=== PATIENT | male | born 1930 | race African-American/Black ===

== ENCOUNTER 2016-09-26 16:36 | Inpatient (IN) | payer OTHER ==
--- NOTE | 2016-09-26 17:13 | EKG Report ---
Test Performed on : 09/26/2016 4:40:22 PM Test Reason : chest pain Blood Pressure : / mmHG Vent. Rate : 088 BPM Atrial Rate : 088 BPM P-R Int : 152 ms QRS Dur : 088 ms QT Int : 390 ms P-R-T Axes : 046 002 118 degrees QTc Int : 471 ms Sinus rhythm. with frequent premature ventricular complexes. Septal infarct , age undetermined T wave abnormality, consider lateral ischemia Abnormal ECG When compared with ECG of 04-APR-2016 04:20, QRS duration has decreased Septal infarct is now present T wave inversion now evident in Lateral leads Unconfirmed Result
[2016-09-26 17:29] LABS: MANUAL DIFF NEEDED? NO
[2016-09-26 17:31] LABS: BASO% 0.3 % (0.0-0.8); EOS# 0.29 X1000 (0.0-0.7); EOS% 4.1 % (0.0-10.0); HEMOGLOBIN 11.6 g/dL (14.0-18.0); IMM GRAN# 0.01 X1000 (0.0-0.04); IMM GRAN% 0.1 % (0.0-0.5); LYMPH# 2.56 X1000 (1.2-3.4); LYMPH% 36.6 % (20.5-51.1); MCH 29.4 PG (27-31); MCHC 34.1 g/dL (33-37); MCV 86.1 FL (81-99); MONO# 0.65 X1000 (0.11-0.59); MONO% 9.3 % (1.7-9.3); MPV 11.9 FL (7.4-10.4); NEUT% 49.6 % (42.2-75.2); PLT 172 X1000 (130-400); RBC 3.95 XMIL (4.7-6.1)
--- NOTE | 2016-09-26 17:37 | PROVIDER DOCUMENTATION ---
HPI-Chest Pain - General Source: patient - History of Present Illness-CP Location: reports: central Chest Pain Radiation: reports: no radiation Quality of Pain: reports: dull, sharp Severity in ED: moderate Onset/Duration: abrupt, 24 hours ago Timing: still present, constant Context/Activities at Onset: reports: none Modifying Factors: worse with: exercise, lying down Associated Symptoms: reports: edema, shortness of breath. denies: back pain, diaphoresis, nausea, vomiting Nitro Today/Relief: no nitro taken today Aspirin Treatment Today: 325 mg x 1, provided by ED Prior Chest Pain/Cardiac Workup: reports: other (previous Bypass Apr 2016) Similar Symptoms Previously?: Yes Recently Seen Here or By Another Healthcare Provider: Yes <Moreno Varma - Last Filed: 09/26/16 17:47> <Wilber Shell - Last Filed: 09/26/16 17:56> <Lucian Macdonald - Last Filed: 09/26/16 18:39> <Pasha Darling - Last Filed: 09/26/16 18:47> - General Chief Complaint: Shortness of Breath Stated Complaint: CHEST PAIN Time Seen by Provider: 09/26/16 17:36 Allergies/Adverse Reactions: Patient Allergies Allergy/AdvReac Type Severity Reaction Status Date / Time Latex, Natural Rubber Allergy Severe RASH Verified 09/26/16 16:41 codeine Allergy Mild ITCHING Verified 09/26/16 16:41 Penicillins Allergy Mild ITCHING Verified 09/26/16 16:41 Home Medications: Home Medication List Medication Instructions Recorded Confirmed Last Taken Type Aspirin [Aspirin EC] 81 mg PO DAILY 03/29/16 09/26/16 04/04/16 History Gabapentin 300 mg PO BID 03/29/16 09/26/16 Unknown History Insulin Regular, Human [Humulin R] 1,000 unit SQ BID 03/29/16 09/26/16 Unknown History Linaclotide [Linzess] 145 mcg PO DAILY 03/29/16 09/26/16 Unknown History NPH, Human Insulin Isophane 100 unit SQ BID 03/29/16 09/26/16 Unknown History [Humulin N] Nitroglycerin Sl [Nitroglycerin] 0.4 mg SL PRN PRN 03/29/16 09/26/16 Unknown History Ranolazine [Ranexa] 1,000 mg PO DAILY 03/29/16 09/26/16 Unknown History Insulin Human NPH [Humulin N] See Protocol SUBQ AC + HS #100 vial 03/30/1609/26 Unknown Rx ATORVAstatin [Lipitor] 10 mg PO QHS 04/04/16 09/26/16 Unknown History Hydrocodone Bit/Acetaminophen 1 tab PO BID 04/04/16 09/26/16 Unknown History [Hydrocodon-Acetaminophen 5-325] Isosorbide Mononitrate [Isosorbide 60 mg PO DAILY 04/04/16 09/26/16 Unknown History Mononitrate ER] Metoprolol [Lopressor] 100 mg PO DAILY 04/04/16 09/26/16 Unknown History Pregabalin [Lyrica] 50 mg PO DAILY PRN PRN 04/04/16 09/26/16 Unknown History - History of Present Illness-CP Nature of Presenting Problem: patient is a 86 y/o M that presents with central chest pain. Pain is dull and sharp in nature. Began yesterday. He has associated shortness of breath and edema. patient went Er and was evaluated all day there. He continued to have pain. Patient had CABG in 2015 by , he reports having pain periodically since then. (Moreno Varma) Review of Systems - Adult - REVIEW OF SYSTEMS - ADULT Constitutional: denies: chills, fever Eyes: reports: no symptoms reported Ears, Nose, Mouth & Throat: reports: no symptoms reported Cardiovascular: reports: chest pain, edema. denies: orthopnea, palpitations, syncope Respiratory: reports: shortness of breath. denies: cough, wheezing Gastrointestinal: denies: abdominal pain, diarrhea, nausea, vomiting Genitourinary: reports: no symptoms reported Musculoskeletal: reports: no symptoms reported Integumentary: reports: no symptoms reported Neurological: reports: no symptoms reported Psychiatric: reports: no symptoms reported Endocrine: reports: no symptoms reported Hematologic/Lymphatic: reports: no symptoms reported Allergic/Immunologic: reports: no symptoms reported All Other Systems: Reviewed and Negative <Moreno Varma - Last Filed: 09/26/16 17:47> Past History - Adult - PAST MEDICAL HISTORY-ADULT Review of Records: reports: Old Records Reviewed, Nursing Assessment Review, Medications Reviewed Cardiovascular: reports: CAD, HTN, hyperlipidemia Respiratory: reports: asthma, other (asbestosis) Gastrointestinal: reports: GERD Obstetrical/Gynecological: reports: denies history Genitourinary: reports: prostate cancer Musculoskeletal: reports: chronic pain Neurological: reports: denies history Psychiatric: reports: anxiety Endocrine/Immune: reports: Diabetes Other Conditions: reports: denies history - PRIOR SURGERIES/PROCEDURES Surgical/Procedure History: reports: tonsillectomy, hernia repair - IMMUNIZATION STATUS Childhood Immunizations: See Nurse Assessment Flu Vaccine: See Nurse Assessment - FAMILY HISTORY Family History: reviewed, not pertinent <Moreno Varma - Last Filed: 09/26/16 17:47> Physical Exam-General - PHYSICAL EXAM-ADULT Initial Vital Signs Reviewed: Yes - CONSTITUTIONAL General Appearance: alert, no apparent distress - EYES Eyes: PERRL/EOMI, pink conjunctivae - HEAD, EARS, NOSE, MOUTH & THROAT HENMT: normocephalic/atraumatic, moist mucous membranes, normal ENT inspection - NECK Neck: non-tender, full range of motion, normal inspection - RESPIRATORY Respiratory: lungs clear, normal breath sounds, no respiratory distress, no accessory muscle use, other (well healed midline surgical scar) - CARDIOVASCULAR Cardiovascular: regular rate, rhythm, no edema, no murmur - GASTROINTESTINAL (ABDOMEN) Abdominal Exam: normal bowel sounds, non tender, soft - MUSCULOSKELETAL Back Exam: no CVA tenderness, no vertebral tenderness Extremity: normal range of motion, non-tender, normal inspection, no pedal edema , no calf tenderness, normal capillary refill - SKIN Integumentary: normal color, warm/dry - NEUROLOGIC Neurologic: grossly normal, no motor/sensory deficits - PSYCHIATRIC Psych/Mental Status: normal mood/affect, normal thought content, normal thought process, oriented x 3 <Moreno Varma - Last Filed: 09/26/16 17:47> Progress - EKG 1 Time of EKG reading by physician:: 16:40 EKG Read and Signed by:: Wilber Shell EKG Interpretation (*Must complete 3 of following elements*): Abnormal Rate: 88 Rhythm: Sinus Rhythm with PVCs [place]: normal QRS: normal ST Wave: non-specific ST changes <Moreno Varma - Last Filed: 09/26/16 17:47> - CHANGE OF SHIFT REPORT (ED Provider) Report Given and Care Transferred to:: Time of Transfer: 18:00 Items Pending: Labs, XRAY Results <Wilber Shell - Last Filed: 09/26/16 17:56> <Lucian Macdonald - Last Filed: 09/26/16 18:39> - XRAY 1 XRAY: Bilateral XRAY Study: Chest XRAY Interpretation: negative - CONSULTS/PCP/HOSPITALIST Notification #1 *Consult/PCP/Hospitalist*: DR MILLER Time Discussed: 18:40 Reason/Comments: DR MCADONALD SPOKE WITH DR MILLER. DR MILLER WILL ADMIT. Consult Disposition: Admit <Pasha Darling - Last Filed: 09/26/16 18:47> - PLAN OF CARE/RESULTS Progress/Plan/Lab Results: plan of care-cardiac work up (Moreno Varma) Laboratory Tests 09/26/16 09/26/16 09/26/16 17:20 17:20 17:20 WBC RBC Hgb Hct MCV MCH MCHC RDW Std Deviation Plt Count MPV Immature Gran % (Auto) Neut % (Auto) Lymph % (Auto) [place] % (Auto) Eos % (Auto) Baso % (Auto) Immature Gran # (Auto) Neut # (Auto) Lymph # (Auto) [place] # (Auto) Eos # (Auto) Baso # (Auto) PT INR APTT (Factor Assay) D-Dimer Sodium 133 L Potassium 4.2 Chloride 97 L Carbon Dioxide 23 L Anion Gap 14 BUN 20 Creatinine 1.2 Estimated GFR/1.73 m2 58 BUN/Creatinine Ratio 17 Glucose 384 H Calculated Osmolality 285 Calcium 9.4 Magnesium 1.9 Total Bilirubin 0.20 AST 24 ALT 16 Alkaline Phosphatase 57 Creatine Kinase 97 Troponin T 0.014 Uya-K-Nuccqwzrmmf Pept 732 H Total Protein 7.3 Albumin 4.0 Globulin 3.0 Albumin/Globulin Ratio 1.0 09/26/16 09/26/16 17:20 17:20 WBC 6.99 RBC 3.95 L Hgb 11.6 L Hct 34.0 L MCV 86.1 MCH 29.4 MCHC 34.1 RDW Std Deviation 15.4 H Plt Count 172 MPV 11.9 H Immature Gran % (Auto) 0.1 Neut % (Auto) 49.6 Lymph % (Auto) 36.6 [place] % (Auto) 9.3 Eos % (Auto) 4.1 Baso % (Auto) 0.3 Immature Gran # (Auto) 0.01 Neut # (Auto) 3.46 Lymph # (Auto) 2.56 [place] # (Auto) 0.65 H Eos # (Auto) 0.29 Baso # (Auto) 0.02 PT 13.5 INR 1.00 APTT (Factor Assay) 30.3 D-Dimer 0.81 H Sodium Potassium Chloride Carbon Dioxide Anion Gap BUN Creatinine Estimated GFR/1.73 m2 BUN/Creatinine Ratio Glucose Calculated Osmolality Calcium Magnesium Total Bilirubin AST ALT Alkaline Phosphatase Creatine Kinase Troponin T Oti-D-Zuazmycdslb Pept Total Protein Albumin Globulin Albumin/Globulin Ratio Orders Category Date Time Status Admit - [facility] Routine AdmDCTranf 09/26/16 18:41 Ordered Activity - Bed Rest with BRP ORDERED Care 09/26/16 18:41 Active Cardiac Monitoring DIRECTED Care 09/26/16 17:19 Active Oxygen Therapy- ED Nursing DIRECTED Care 09/26/16 17:19 Active Saline Loc NOW Care 09/26/16 17:19 Active Vital Signs Order Q 4-HR ASSESS Care 09/26/16 18:41 Active Diabetic Diet Diet 09/26/16 18:42 Active CHEST-2 VIEWS [RAD] Stat Exams 09/26/16 17:19 Taken CTA [ANGIOGRAM/PULMONARY ARTERIES] [CT] Stat Exams 09/26/16 18:06 Taken CBC WITH ELECTRONIC DIFF [HEME] Stat Lab 09/26/16 17:20 Completed CK PROFILE [SP CHEM] Stat Lab 09/26/16 17:20 Completed COMPREHENSIVE METABOLIC PANEL [CHEM] Stat Lab 09/26/16 17:20 Completed Cardiac Profile [CK PROFILE] [SP CHEM] Timed Lab 09/26/16 21:00 Ordered D-DIMER PL [COAG] Stat Lab 09/26/16 17:20 Completed MAGNESIUM [CHEM] Stat Lab 09/26/16 17:20 Completed PRO B-NATRIURETIC PEPTIDE Stat Lab 09/26/16 17:[address] Com[address]IME WITH INR [address] [COAG] Stat Lab 09/26/16 17:[address] [COAG] Stat Lab 09/26/16 17:20 Completed TROPONIN T Q4H Lab 09/26/16 21:00 Ordered TROPONIN T Q4H Lab 09/27/16 01:00 Ordered TROPONIN T Q4H Lab 09/27/16 05:00 Ordered TROPONIN T Stat Lab 09/26/16 17:20 Completed Enoxaparin [Lovenox] Med 09/26/16 18:40 Discontinued 80 mg SUBQ NOW ONE Oxygen Device Routine Oth 09/26/16 18:42 Active Telemetry [OM.EQ] Routine Oth 09/26/16 18:41 Active EKG [EKG] Stat Ther 09/26/16 17:10 Draft EKG [EKG] Stat Ther 09/26/16 17:19 Ordered Transfer/Admit Order [TRANSFER] Routine Transfer 09/26/16 18:44 Ordered Vital Signs - 24 hr 09/26/16 16:38 Pulse Rate 91 H Respiratory 24 Rate Blood Pressure 116/071 O2 Sat by Pulse 98 Oximetry (Pasha Darling) Departure <Moreno Varma - Last Filed: 09/26/16 17:47> <Wilber Shell - Last Filed: 09/26/16 17:56> - Departure Time of Disposition Order: 18:40 Certified Medical Emergency: Emergent <Lucian Macdonald - Last Filed: 09/26/16 18:39> <Pasha Darling - Last Filed: 09/26/16 18:47> - Departure DIAGNOSIS: Shortness of breath, Elevated d-dimer Chest pain Qualifiers: Chest pain type: unspecified Qualified Code(s): R07.9 - Chest pain, unspecified CAD (coronary artery disease) Qualifiers: Coronary Disease-Associated Artery/Lesion type: unspecified vessel or lesion type [place] vs. transplanted heart: unspecified whether [place] or transplanted heart Associated angina: with unspecified angina Qualified Code(s): I25.119 - Atherosclerotic heart disease of [place] coronary artery with unspecified angina pectoris Disposition: ADMITTED INPATIENT 09 Condition: Stable Referrals: Chinmay Cunha MD [Primary Care Provider] - Attestation - Scribe Verification/Attestation Scribe:: Moreno Varma Acting as Scribe for:: Wilber Shell Scribe documention review:: This chart was documented by a scribe and accurately reflects the service the provider performed and the decisions made by the provider. <Moreno Varma - Last Filed: 09/26/16 17:47> - Scribe Verification/Attestation Scribe:: Pasha Darling Acting as Scribe for:: Lucian Macdonald Scribe documention review:: This chart was documented by a scribe and accurately reflects the service the provider performed and the decisions made by the provider. <Pasha Darling - Last Filed: 09/26/16 18:47> Physician Attestation - Physician Attestation I, the provider, attest to the following statement:: Wilber Shell Physician documentation Attestation:: This documentation recorded by the scribe accurately reflects the service I personally performed and the decisions made by me. <Moreno Varma - Last Filed: 09/26/16 17:47>
[2016-09-26 17:40] LABS: PROTIME 13.5 Seconds (12.1-15.5)
[2016-09-26 17:41] LABS: PTT PL 30.3 Seconds (22.6-43.9)
[2016-09-26 17:56] LABS: CALCIUM 9.4 mg/dL (8.8-10.2); MAGNESIUM 1.9 mg/dL (1.5-2.7); POTASSIUM 4.2 mmol/L (3.5-5.1); TOTAL BILIRUBIN 0.2 mg/dL (0.20-1.00); TOTAL PROTEIN 7.3 g/dL (6.3-8.3)
[2016-09-26] MEDS ORDERED: LOVENOX SUBQ ONE (18:40)
[2016-09-26] MEDS ORDERED: HUMULIN R (PARKWAY) SUBQ ONE (19:32)
[2016-09-26] MEDS ORDERED: HUMULIN R DOSE (PARKWAY) ONE (19:43)
[2016-09-26] MEDS ORDERED: LYRICA PO PRN (21:05)
[2016-09-26] MEDS ORDERED: NITROGLYCERIN SL PRN (21:05)
[2016-09-27 05:58] LABS: HEMATOCRIT 33.5 % (42.0-52.0); HEMOGLOBIN 11.4 g/dL (14.0-18.0); MCV 85.2 FL (81-99); MPV 11.9 FL (7.4-10.4); RBC 3.93 XMIL (4.7-6.1)
[2016-09-27] MEDS: LINZESS PO SCH (07:06)
[2016-09-27] MEDS: HUMULIN R (PARKWAY) SUBQ SCH ×2 (09:18→17:18)
[2016-09-27] MEDS: NORCO-5 PO SCH ×2 (09:19→20:53)
[2016-09-27] MEDS: IMDUR PO SCH (09:19)
[2016-09-27] MEDS: ASPIRIN EC PO SCH (09:19)
[2016-09-27] MEDS: RANEXA PO SCH (09:19)
[2016-09-27] MEDS: LOPRESSOR PO SCH (09:19)
[2016-09-27] MEDS: HUMULIN N INSULIN (PARKWAY) SUBQ SCH ×2 (09:19→17:18)
[2016-09-27] MEDS: NEURONTIN PO SCH ×2 (09:19→20:52)
[2016-09-27 09:21] LABS: AGAP 15; ALBUMIN 3.8 g/dL (3.5-5.0); ALKALINE PHOSPHATASE 51 U/L (32-122); BUN 20 mg/dL (8-22); CALCIUM 9.1 mg/dL (8.8-10.2); CHLORIDE 101 mmol/L (98-107); COSMO 282; GOT 28 U/L (10-34); GPT 18 U/L (10-44); HDL 64 mg/dL (35-55); LDL 124 mg/dL; POTASSIUM 4.3 mmol/L (3.5-5.1); SODIUM 138 mmol/L (136-145); TCO2 22 mmol/L (25-35); TOTAL BILIRUBIN 0.32 mg/dL (0.20-1.00); TOTAL PROTEIN 7.1 g/dL (6.3-8.3); TRIGLYCERIDES 76 mg/dL (39-160); VLDL 15 mg/dL
--- NOTE | 2016-09-27 09:29 | Diag Imaging Result Document ---
PROCEDURE NAME: CHEST-2 VIEWS - 09/26/2016 TWO VIEWS OF THE CHEST: FINDINGS: There has been sternotomy and multiple old rib fractures on the left. The lungs are actually better expanded than on 04/04/2016. There has been no appreciable change otherwise. IMPRESSION: No acute abnormality.
[2016-09-27] MEDS: LASIX PO SCH (09:36)
[2016-09-27] MEDS: WELLBUTRIN XL PO SCH (09:36)
[2016-09-27] MEDS: FLOMAX PO SCH (09:36)
[2016-09-27] MEDS: CYMBALTA PO SCH (09:36)
[2016-09-27] MEDS: COZAAR PO SCH (09:36)
[2016-09-27] MEDS: REMERON PO SCH (09:36)
[2016-09-27] MEDS: DEPAKOTE PO SCH ×2 (09:36→20:52)
--- NOTE | 2016-09-27 09:57 | Diag Imaging Result Document ---
PROCEDURE NAME: ANGIOGRAM/PULMONARY ARTERIES - 09/26/2016 CT OF THE CHEST WITH INTRAVENOUS CONTRAST: FINDINGS: There is some patient motion which obscures detail in the distal branches of the pulmonary arteries but no definite filling defects are identified. The aorta is not distended and there is no evidence of dissection. The left ventricle is slightly enlarged. There is a left pleural effusion. 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 No significant adenopathy is present. There has been previous sternotomy. There is no evidence of acute pulmonary parenchymal disease. There is a small hiatal hernia. IMPRESSION: Left pleural effusion. No evidence of pulmonary emboli. 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
[2016-09-27] MEDS: EXELON PO SCH (10:19)
[2016-09-27] MEDS: TEMOVATE 0.05% CREAM TOP SCH ×2 (10:19→20:53)
--- NOTE | 2016-09-27 10:50 | PROGRESS NOTE ---
DATE: 09/27/2016 SUBJECTIVE: The patient denies any chest pain currently this morning. He states that he was able to sleep last night. Denies any current shortness of breath. However, notes that he is having pain on his right leg. Interestingly, the patient notes that this is the reason he came to the hospital was his right leg pain, although last night he denied anything other than shortness of breath. Today, he notes that the right leg pain has been going on for several months. Patient unfortunately is a poor historian at best, and family does not appear to be able to assist in his history. OBJECTIVE: Vital Signs: On physical, temperature 97.0 degrees, pulse 80, respiratory 18, BP 128/91 to 164/74, satting 100% on room air. General: Patient is well developed, well nourished. He is currently in no respiratory distress. He is awake, alert. Neck: Supple. Sitting up eating breakfast. Chest: Relatively clear. Occasional rhonchi. No crackles, no wheezing. CV: Regular rate. Abdomen: Soft. Extremities: He is noted to move all extremities. Neurologic: No changes. LABORATORY DATA: CBC normal. CMP pending. Cardiac enzymes were negative. DIAGNOSTIC DATA: Ultrasound of lower extremities pending. CTA final dictated copy also is still pending. ASSESSMENT: 1. Elevated D-dimer likely secondary to his previous heart surgery. 2. Mild anemia of chronic disease, stable. 3. Hyponatremia. 4. Diabetes with hyperglycemia. 5. Right leg pain. PLAN: We will check an x-ray of his lower extremity. We will check ultrasound. We will continue his home medications, hopefully home in 1-2 days.
--- NOTE | 2016-09-27 12:20 | HISTORY AND PHYSICAL ---
CHIEF COMPLAINT: Chest pain. HISTORY OF PRESENT ILLNESS: This patient is an 86-year-old male, who recently had some heart procedure done in June. The patient is a very poor historian as his daughter. The patient notes that he has been having chest pain ever since, but then notes the chest pain is not the reason that he came to the hospital, instead it was shortness of breath. He denies any current shortness of breath. Notes that he was just in the ER at [facility] yesterday for the chest pain and shortness of breath and was given medication, however they did not fill this at home. ALLERGIES: Latex, codeine, penicillin causing itching and rash. MEDICATIONS: Aspirin, gabapentin 300 b.i.d., Humulin-R, Linzess 140, Humulin-N 100 b.i.d., Ranexa 1000 once a day, Lipitor 10 at bedtime, [place] p.r.n., Imdur ER 60, Lopressor 100, Lyrica 50. PAST MEDICAL HISTORY: Known coronary artery disease. The patient had a CABG in [place] [address] Acharya. He has been having chest pain off and on ever since. Known coronary artery disease, hypertension, hyperlipidemia, history of asbestosis, reflux, history of prostate cancer, chronic pain, diabetes, history of tonsillectomy and a hernia repair. FAMILY HISTORY: Positive for heart disease and diabetes. SOCIAL HISTORY: Patient lives at home. He is helped, cared for by his family. He does not smoke or drink. PHYSICAL EXAMINATION: VITAL SIGNS REVIEWED: Temperature 98.0 degrees, pulse 91, respiratory 20, BP 116/71, satting 98% on room air. GENERAL: Patient is a well developed, elderly male, who is currently in no respiratory distress. He is awake, alert. NECK: Supple. CV: Regular rate. CHEST: Relatively clear. No wheezing. No crackles appreciable. ABDOMEN: Soft. EXTREMITIES: Moves all extremities. NEUROLOGIC: No changes. LABS: CBC essentially normal. D-dimer elevated at 0.81 as to be expected with his recent heart surgery. Glucose 384. Sodium 133. First set of cardiac enzymes negative. BNP 732. ASSESSMENT: 1. Chest pain. 2. Shortness of breath. 3. Known coronary artery disease. 4. Chronic pain. 5. Diabetes. 6. Hyponatremia. 7. Elevated D-dimer with a negative computed tomography angiography. PLAN: We will admit patient to the hospital overnight. Check ultrasound of his lower extremity. CTA was reported as negative, although I do not have the final dictated copy. We will continue his home medications. We will order ultrasound of his lower extremities, although expect his D- dimer is elevated secondary to his recent heart surgery.
--- NOTE | 2016-09-27 13:24 | Diag Imaging Result Document ---
PROCEDURE NAME: LOWER LEG-RIGHT - 09/27/2016 RIGHT LOWER LEG 4 VIEWS: FINDINGS: There are some arterial calcifications. There is no evidence of acute fracture or dislocation. No periosteal reaction or lysis is present. IMPRESSION: Atherosclerosis.
[2016-09-27] MEDS: TESSALON PO SCH ×2 (14:00→17:19)
[2016-09-27] MEDS ORDERED: NS 500 ML ONE (17:02)
[2016-09-27] MEDS ORDERED: NS 500 ML IV ONE (17:15)
[2016-09-27 17:28] LABS: URINE CULTURE PL NEEDED? NO
[2016-09-27 17:52] LABS: BILIRUBIN URINE NEGATIVE (NEGATIVE); BLOOD URINE NEGATIVE (NEGATIVE); CLARITY CLEAR (CLEAR); COLOR YELLOW; GLUCOSE URINE NEGATIVE (NEGATIVE); LEUKOCYTES URINE NEGATIVE (NEGATIVE); NITRITE URINE NEGATIVE (NEGATIVE); PROTEIN URINE 1+(30 mg/dL) mg/dL (NEGATIVE); UROBILINOGEN URINE NORMAL
[2016-09-27 18:06] LABS: HEMATOCRIT 31.4 % (42.0-52.0); HEMOGLOBIN 10.6 g/dL (14.0-18.0); MCH 29.2 PG (27-31); MCHC 33.8 g/dL (33-37); MCV 86.5 FL (81-99); MPV 11.9 FL (7.4-10.4); RBC 3.63 XMIL (4.7-6.1)
[2016-09-27 18:07] LABS: ALBUMIN 3.6 g/dL (3.5-5.0); CALCIUM 9.1 mg/dL (8.8-10.2); MAGNESIUM 2.1 mg/dL (1.5-2.7); POTASSIUM 4.4 mmol/L (3.5-5.1); TOTAL BILIRUBIN 0.3 mg/dL (0.20-1.00); TOTAL PROTEIN 6.7 g/dL (6.3-8.3)
[2016-09-27 18:12] LABS: URINE SOURCE CATH
[2016-09-27] MEDS: LIPITOR PO SCH (20:52)
[2016-09-28 05:59] LABS: HEMATOCRIT 30.7 % (42.0-52.0); HEMOGLOBIN 10.4 g/dL (14.0-18.0); MCH 29.1 PG (27-31); MCHC 33.9 g/dL (33-37); MCV 85.8 FL (81-99); MPV 12.1 FL (7.4-10.4); RBC 3.58 XMIL (4.7-6.1)
[2016-09-28] MEDS: LINZESS PO SCH (06:07)
[2016-09-28 06:14] LABS: ALBUMIN 3.5 g/dL (3.5-5.0); CALCIUM 8.7 mg/dL (8.8-10.2); POTASSIUM 3.9 mmol/L (3.5-5.1); TOTAL BILIRUBIN 0.3 mg/dL (0.20-1.00); TOTAL PROTEIN 6.5 g/dL (6.3-8.3)
[2016-09-28] MEDS: HUMULIN R (PARKWAY) SUBQ SCH ×2 (08:26→18:23)
[2016-09-28] MEDS: HUMULIN N INSULIN (PARKWAY) SUBQ SCH ×2 (08:26→18:23)
[2016-09-28] MEDS: ASPIRIN EC PO SCH (08:27)
[2016-09-28] MEDS: LASIX PO SCH (08:27)
[2016-09-28] MEDS: COZAAR PO SCH (08:31)
[2016-09-28] MEDS: LOPRESSOR PO SCH (08:31)
[2016-09-28] MEDS: IMDUR PO SCH (08:33)
[2016-09-28] MEDS: TEMOVATE 0.05% CREAM TOP SCH ×2 (08:33→20:13)
[2016-09-28] MEDS: FLOMAX PO SCH (08:33)
[2016-09-28] MEDS: RANEXA PO SCH (08:33)
[2016-09-28] MEDS: NORCO-5 PO SCH (08:33)
[2016-09-28] MEDS: REMERON PO SCH (08:33)
[2016-09-28] MEDS: NEURONTIN PO SCH ×2 (08:33→20:13)
[2016-09-28] MEDS: WELLBUTRIN XL PO SCH (08:34)
[2016-09-28] MEDS: CYMBALTA PO SCH (08:34)
[2016-09-28] MEDS: DEPAKOTE PO SCH ×2 (08:34→20:12)
[2016-09-28] MEDS: EXELON PO SCH (08:34)
[2016-09-28] MEDS: TESSALON PO SCH ×3 (08:34→16:27)
[2016-09-28] MEDS ORDERED: LOPRESSOR PO SCH (08:52)
--- NOTE | 2016-09-28 09:24 | EKG Report ---
Test Performed on : 09/27/2016 4:58:03 PM Test Reason : CHEST PAIN Blood Pressure : / mmHG Vent. Rate : 074 BPM Atrial Rate : 074 BPM P-R Int : 164 ms QRS Dur : 090 ms QT Int : 438 ms P-R-T Axes : 051 025 162 degrees QTc Int : 486 ms Sinus rhythm. with frequent premature ventricular complexes. T wave abnormality, consider lateral ischemia Prolonged QT Abnormal ECG When compared with ECG of 26-SEP-2016 16:40, (Unconfirmed) Nonspecific T wave abnormality now evident in Inferior leads Unconfirmed Result
--- NOTE | 2016-09-28 12:29 | PROGRESS NOTE ---
DATE: 09/28/2016 SUBJECTIVE: Patient had an eventful episode yesterday whereas yesterday morning he was awake and alert. He was in no distress. He was feeling fine. Yesterday around 2 p.m., he became lightheaded, dizzy, somewhat short of breath. His had to help him lay back on the bed. Afterwards, she noted that he was a lot more sleepy than his usual self. Since that time, he was given some IV fluids. This morning, he is awake, alert. He is in no distress. He states that he is feeling better. He is actually asking to go home. PHYSICAL EXAMINATION: Vital Signs: Temperature 98, pulse 68, respiratory rate 18, BP 99/75. General: Patient is awake, alert. He is in no distress. He is pleasant to talk with. Speech is regular. Memory appears intact. HEENT: Normocephalic, atraumatic. [place]. Neck: Supple. CV: Regular rate. Chest: Relatively clear. Abdomen: Soft. Extremities: Moves all extremities. Neurologic: No changes. DIAGNOSTIC DATA: CBC unchanged. CMP reviewed with a creatinine of 1.4 which is improved. ASSESSMENT: 1. Chest pain, resolved. 2. Syncopal episode, likely secondary to medications. Patient is improved. 3. Known coronary artery disease with a recent coronary artery bypass graft in April of 2016. 4. Chronic pain. 5. Diabetes with hyperglycemia. 6. Acute renal failure. Serum creatinine is improving. 7. Elevated D-dimer with a negative ultrasound of the lower extremities as well as negative CTA. PLAN: We will continue patient in the hospital today. We will continue to follow. We will decrease his metoprolol from 100-50 as this certainly could have contributed to his syncopal type episode when he tried to sit up. He also got a little overly dry from the IV Lasix that he received and was given a small fluid bolus last night. Patient appears to be better today. We will continue to follow. Further orders as needed. There were 44 minutes spent in total care.
--- NOTE | 2016-09-28 16:22 | CONSULTATION ---
DATE OF CONSULTATION: 09/28/2016 INDICATION: Shortness of breath. HISTORY OF PRESENT ILLNESS: Mr. De La Fuente is an 86-year-old, black male who normally follows with Dr. Tobar. He has a history of recent cardiac bypass in approximately April [address] Acharya. The patient reportedly had episodic shortness of breath that caused him to seek care around that time. He thinks that this improved for a few months or so after the bypass, but then over the last couple of months it has returned. This mostly is noted with exertion, but apparently has also had some episodic orthopnea as well. The patient is an extremely poor historian. He has a family member present in the room who provides some of the history, but again this is a very difficult history. He reportedly had an ER visit at [place] with an apparent dose of Lasix due to fluid overload, but we have no records to review from that ER visit. He apparently had this performed in roughly mid of last week and continued to have episodic shortness of breath and thus presented to [place] for further evaluation on the . PAST MEDICAL HISTORY: 1. Significant for coronary disease with bypass in April [address] Acharya. 2. Hypertension. 3. Hyperlipidemia. 4. Diabetes mellitus. SOCIAL HISTORY: He does not currently smoke. No alcohol use. FAMILY HISTORY: Significant for hypertension. REVIEW OF SYSTEMS: A 10 system review of systems is negative except for those things mentioned in HPI. PHYSICAL EXAMINATION: Vital signs: He is afebrile. His heart rate is 82. His blood pressures have been somewhat erratic. He had a 91/61. Since the since, most of his blood pressures have been in the 110s or so to 120s systolic. His heart rate is 82. General: He is in no acute distress. HEENT: Oropharynx is moist. Normal dentition. His eye examination shows pink conjunctivae, white sclerae. Neck: Examination shows no obvious thyromegaly or thyroid tenderness. Cardiovascularly: He is in a regular rate and rhythm. He has no obvious murmurs. He has no S3. He has no lower extremity edema. Chest: Exam sounds clear to auscultation bilaterally. He has no increased work of breathing. Abdomen: Soft, nontender , nondistended. He has no obvious organomegaly. Skin: Warm and dry throughout without any rashes. Neurological: He is moving all extremities well. Cranial nerves 2-12 are intact without any sensation deficits. Psychiatric: He is alert, oriented and pleasant. He has a normal mood and affect. PERTINENT DATA: He has EKGs performed here in the hospital. His initial was performed the at 1640. This shows sinus rhythm. He has some mild ST-segment changes in V4 through V6 with suggestion of a possible septal infarct. His subsequent EKG was performed on the at 1658, shows sinus rhythm, evidence for mild ST-segment changes somewhat diffusely. Evidence for septal infarct is present. T-wave inversions are noted laterally. These seem different from his last EKG that is interpretable on 03/29/2016. He had a pulmonary arteriogram that demonstrated a left- sided pleural effusion. 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 No evidence of pulmonary emboli was identified. His laboratory data shows a white count is 6.7 , hematocrit 30.7, platelet count 168,000. His sodium is 135, potassium 3.9, his BUN is 28, creatinine is 1.4. His cardiac enzymes are negative times multiple sets. His albumin is 3.5. ASSESSMENT: Shortness of breath in a patient with recent bypass and history of left subclavian stenosis. PLAN: Reviewing his computed tomography scan, it does not appear that the patient has a very prominent pleural effusion. It does not seem to be adequate enough to explain his symptomatology. I will review his bypass records and at that point, I would recommend consideration for possible intervention on the left subclavian artery. I an JEFFREY was used, the patient could be experiencing some subclavian steal across the inferior mesenteric artery resulting in relative ischemia to that territory. I would like for review his cardiac catheterization as well as his bypass. We will plan on checking an echocardiogram as we do not have a documentation of his ejection fraction here. For now, we will continue him on his current medications. I have discussed this with Dr. Huddleston. We will review his films and bypass records and proceed from there. [facility]
[2016-09-28] MEDS: LIPITOR PO SCH (20:12)
[2016-09-29] MEDS: LINZESS PO SCH (06:05)
--- NOTE | 2016-09-29 08:04 | PROGRESS NOTE ---
DATE: 09/29/2016 SUBJECTIVE: The patient has multiple complaints this morning. Unfortunately, he and his both are extremely poor historians and have a very difficult to follow history. The patient was admitted initially for chest pain. Since that time his symptoms have continued to change. He currently is having chest pain on the left side that is easily pointed to with 1 finger. The pain seems to get better when he sits up but does not worsen with any activity. Interestingly, the patient notes the pain gets better when he sits up but states he feels better when he is lying down. The pain sometimes goes to his left arm, sometimes to his back, sometimes nausea, sometimes dizziness. Sometimes the pain comes with deep breathing and sometimes not. OBJECTIVE: Vital signs: Temperature 98, pulse 43, respiratory 18, BP 150/66. General: The patient is a well-developed, elderly male who is currently in no real respiratory distress. He is awake, alert. Neck: Supple. CV: Regular rate. Chest: Relatively clear. No rhonchi. No crackles. No wheezing. Good air movement. Abdomen: Soft. Extremities: Moves all extremities. LABS: Currently pending. Echo pending. ASSESSMENT: 1. Chest pain in a patient with known coronary artery disease who just had a coronary artery bypass graft in April 2016. 2. Chronic pain. 3. Diabetes. 4. Hyponatremia, resolved. 5. Shortness of breath. 6. History of left subclavian stenosis. PLAN: Echo is pending. Dr. Cifuentes is worried about subclavian steal syndrome. This will continue to be reevaluated. Patient is noted to have some bradycardia which interestingly enough has actually worsened after decreasing his metoprolol to 50 daily from 100 daily. Certainly makes the question as to whether they were taking 100 mg daily at home. However, will decrease to 25 daily today and follow.
[2016-09-29] MEDS: IMDUR PO SCH (08:37)
[2016-09-29] MEDS: COZAAR PO SCH (08:37)
[2016-09-29] MEDS: ASPIRIN EC PO SCH (08:37)
[2016-09-29] MEDS: WELLBUTRIN XL PO SCH (08:37)
[2016-09-29] MEDS: CYMBALTA PO SCH (08:38)
[2016-09-29] MEDS: HUMULIN R (PARKWAY) SUBQ SCH ×2 (08:38→18:50)
[2016-09-29] MEDS: HUMULIN N INSULIN (PARKWAY) SUBQ SCH ×2 (08:38→18:50)
[2016-09-29] MEDS: LASIX PO SCH (08:38)
[2016-09-29] MEDS: DEPAKOTE PO SCH (08:39)
[2016-09-29] MEDS: FLOMAX PO SCH (08:39)
[2016-09-29] MEDS: EXELON PO SCH (08:39)
[2016-09-29] MEDS: TEMOVATE 0.05% CREAM TOP SCH (08:39)
[2016-09-29] MEDS: LOPRESSOR PO SCH (08:40)
[2016-09-29] MEDS: REMERON PO SCH (08:40)
[2016-09-29] MEDS: RANEXA PO SCH (08:40)
[2016-09-29] MEDS: NEURONTIN PO SCH (08:40)
[2016-09-29] MEDS: TESSALON PO SCH ×3 (08:41→18:50)
--- NOTE | 2016-09-29 15:10 | ECHO REPORT ---
ORDER DATE: 09/29/2016 INDICATION FOR THE STUDY: Dyspnea on exertion. FINDINGS: 1. Right atrium is normal in size. 2. There is mild tricuspid regurgitation. RV systolic pressure of 57. 3. Normal RV size and systolic function. 4. Trace pulmonic insufficiency. 5. Mild left atrial enlargement at 4 cm. 6. No mitral valve prolapse. There is moderate mitral regurgitation. 7. Normal LV size, end-diastolic dimension of 4.9. Normal wall thicknesses with a posterior and interventricular septal wall thickness of 0.8 cm each. Mildly reduced LV systolic function. The estimated EF is 45-50%. The patient has multiple bouts of ectopy during the course of the study making evaluation of the EF difficult. There is no clear evidence of segmental wall motion abnormalities on this study. 8. Aortic valve opens well. It is sclerotic. No stenosis. There is mild aortic insufficiency. 9. Aorta appears normal in visualized segments. 10. No pericardial effusion seen.
[2016-09-30] MEDS: DEPAKOTE PO SCH ×2 (00:32→09:12)
[2016-09-30] MEDS: LIPITOR PO SCH (00:36)
[2016-09-30] MEDS: NEURONTIN PO SCH ×2 (00:36→09:11)
[2016-09-30] MEDS: TEMOVATE 0.05% CREAM TOP SCH ×2 (00:37→09:17)
[2016-09-30] MEDS: LINZESS PO SCH (06:26)
--- NOTE | 2016-09-30 07:05 | Extremity Venous Study ---
PROCEDURE NAME: Venous U/S Bilateral Legs - 09/27/2016 VENOUS ULTRASOUND OF THE LOWER EXTREMITIES: FINDINGS: The deep veins of both lower extremities are compressible and demonstrate normal color Doppler flow with augmentation. No abnormal fluid collections or masses are identified. IMPRESSION: No evidence of deep venous thrombosis.
[2016-09-30] MEDS: CYMBALTA PO SCH (09:06)
[2016-09-30] MEDS: REMERON PO SCH (09:08)
[2016-09-30] MEDS: TESSALON PO SCH ×2 (09:09→13:05)
[2016-09-30] MEDS: FLOMAX PO SCH (09:10)
[2016-09-30] MEDS: EXELON PO SCH (09:10)
[2016-09-30] MEDS: RANEXA PO SCH (09:11)
[2016-09-30] MEDS: LOPRESSOR PO SCH (09:13)
[2016-09-30] MEDS: HUMULIN R (PARKWAY) SUBQ SCH ×2 (09:14→15:05)
[2016-09-30] MEDS: HUMULIN N INSULIN (PARKWAY) SUBQ SCH ×2 (09:15→15:04)
[2016-09-30] MEDS: ASPIRIN EC PO SCH (09:16)
[2016-09-30] MEDS: WELLBUTRIN XL PO SCH (09:16)
[2016-09-30] MEDS: LASIX PO SCH (09:16)
[2016-09-30] MEDS: COZAAR PO SCH (09:16)
[2016-09-30] MEDS: IMDUR PO SCH (09:17)
--- NOTE | 2016-09-30 12:39 | PROGRESS NOTE ---
DATE: 09/30/2016 SUBJECTIVE: Patient is short of breath, especially when lying down. Really no other complaints. No chest pains. PHYSICAL EXAMINATION: Vital Signs: Blood pressure 153/67, heart rate 79, respiratory rate 20, temperature 98 degrees, 100% on room air. Cardiovascular: Regular rate and rhythm. Pulmonary: Bilateral breath sounds. Clear to auscultation. Gastrointestinal: Soft, nontender, nondistended. Bowel sounds are positive. LABORATORY DATA: White count 6.6, hemoglobin and hematocrit 10 and 30, platelets 168,000. No new laboratories today. Blood sugars have been stable. PROBLEM LIST: 1. Chest pain with coronary artery disease. There is concern over subclavian steal syndrome. His echocardiogram showed MR with an EF of 45% to 50%, but otherwise was unremarkable. Waiting on them to decide about further testing, including cardiac catheterization, because of his history. 2. Bradycardia. He is stable on current dose of the Toprol. We will continue to monitor. 3. Diabetes. Continue his regular medications. DISPOSITION: Pending Cardiology evaluation. We will continue to follow. DISCHARGE CONDITION: Pending.
--- NOTE | 2016-09-30 14:55 | PROGRESS NOTE ---
DATE: 09/30/2016 SUBJECTIVE: Mr. De La Fuente is reporting that he is doing well today. He has no chest pain, no shortness of breath. He is a little bit disgruntled with his hospital stay thus far. PHYSICAL EXAMINATION: Vital signs: He is afebrile, heart rate of 79. Blood pressures have been widely variable. His right arm blood pressures have been elevated in the 150s to 180s with left arm blood pressures oftentimes in the 90s to 100s. General: No acute distress. Cardiovascular: He is in a regular rate and rhythm. He has no obvious murmurs. He has no S3. He has no lower extremity edema. Chest: His chest exam is clear to auscultation bilaterally. He has no increased work of breathing. Abdomen: Soft, nontender, nondistended. He has no obvious organomegaly. PERTINENT DATA: He has no laboratory data today. ASSESSMENT: 1. Left subclavian stenosis. 2. Coronary artery disease. 3. Congestive heart failure. PLAN: Patient has been diuresed. Review of his operative report which we have available today shows that he did not have an JEFFREY placed at the time of his bypass. Given these findings that we are aware of now, the left subclavian stenosis does not seem as urgent of an issue to intervene on. However, given his significant pulse discrepancy and appearance of severe stenosis on the CT, I think it would still be prudent to refer the patient to Dr. Johansen to assess the feasibility for intervention to that left arm. I have made the patient aware that we are working on arranging an appointment. Otherwise, he will have appointments arranged with Dr. Tobar as a followup to follow up on this heart failure admission as well as the ER visit that he had over in [place] on the . Presently, his antianginals have been increased with the addition of Ranexa. The patient was a little bit bradycardic during his initial hospital stay, and thus, his metoprolol was down titrated.
[2016-09-30 16:53] VITALS: BP 154/71
--- NOTE | 2016-09-30 18:03 | DISCHARGE SUMMARY ---
ADMISSION DATE: 09/29/2016 DISCHARGE DATE: 09/30/2016 PRIMARY CARE PHYSICIAN: Dr. Chinmay Cunha MD CERAMICS ENGINEER: Dr. Tobar. ADMISSION DIAGNOSES: 1. Chest pain. 2. Shortness of breath. 3. Known coronary artery disease. 4. Chronic pain. 5. Diabetes. 6. Hyponatremia. 7. Elevated D-dimer with negative CTA. DISCHARGE DIAGNOSES: 1. Chest pain. 2. Left subclavian stenosis. 3. Coronary artery disease. 4. Congestive heart failure. 5. Bradycardia stable on current dose of Toprol. 6. Diabetes. 7. Hyponatremia resolved. 8. Acute kidney injury improved. SUMMARY OF FINDINGS: This is an 86-year-old male who presented to [facility] with chest pain. He states he had been having his chest pain ever since he had a heart procedure done in June, but states that that is not the reason he came to the hospital. The reason he came he states was for shortness of breath, but denied any current shortness of breath on arrival. He notes that he was just in the ER at [facility] on the day prior to arrival for chest pain and shortness of breath and was given medication. However, he did not get it filled at home. He was admitted. We did a lower extremity x-ray that showed atherosclerosis. We did a venous study of his bilateral lower extremities that showed no evidence of a DVT. We did a pulmonary arteriogram that showed a left pleural effusion and no evidence of pulmonary emboli and stenosis of the proximal left subclavian artery. We consulted cardiology who saw the patient and felt that he needed consideration for possible intervention of the left subclavian artery that he could be experiencing some subclavian steal across the inferior mesenteric artery and resulting in relative ischemia to that territory. They checked an echocardiogram that showed an ejection fraction of 45- 50%. He was started on Ranexa 500 mg p.o. b.i.d. Cardiology saw the patient today and felt that he have a left subclavian stenosis and felt that he needed to be referred to Dr. Johansen to assess the feasibility for intervention to the left arm. We attempted to make that followup appointment, but he was out of the office at this time so his office will be calling the patient with an appointment time and date. He has an appointment with Dr. Tobar his numerical analysis group manager this on 10/02/2016 at 10:00 in the morning to follow up, and it is felt that he can safely be discharged home today. He will have a prescription for his regular insulin to be taking 14 units subcu before breakfast and 16 units subcu before supper. He will also have a prescription for the NPH 24 units subcu before meals breakfast and 16 units subcu before supper. He will have a prescription for his metoprolol 25 mg p.o. daily #30 with 2 refills, and a prescription for the Ranexa 500 mg p.o. b.i.d., #60 with 2 refills. He will then continue his home medications. DISCHARGE MEDICATIONS: 1. He will continue his Lipitor 10 mg p.o. at bedtime. 2. Aspirin 81 mg p.o. daily. 3. Tessalon Perles 100 mg p.o. t.i.d. 4. Wellbutrin 150 mg p.o. daily. 5. Clobetasol topically b.i.d. 6. Depakote 250 mg p.o. b.i.d. 7. Cymbalta 60 mg p.o. daily. 8. Lasix 40 mg p.o. daily. 9. Gabapentin 300 mg p.o. b.i.d. 10. Imdur 60 mg p.o. daily. 11. Linzess 145 mcg p.o. daily. 12. Losartan 50 mg p.o. daily. 13. Remeron 30 mg p.o. at bedtime. 14. Nitroglycerin 0.4 mg tablets sublingually p.r.n. 15. Lyrica 50 mg p.o. daily p.r.n. 16. Exelon 4.5 mg p.o. daily. 17. Tamsulosin 0.4 mg p.o. at bedtime. FOLLOWUP: Again, he will follow up with his primary care physician in 1-2 weeks. His appointment with his numerical analysis group manager, Dr. Tobar on 10/02 at 10:00 in the morning and then the [facility] will call from Dr. Johansen's office to schedule his outpatient cardiac cath. All discharge instructions have been reviewed with the patient and he verbalized understanding. TIME SPENT: 35 minute discharge. Dictated by ANTIONETTE Rangel for Anthony Aburto MD
[2016-09-30] MEDS ORDERED: RANEXA PO SCH (21:00)
== END 2016-09-30 17:40 | disposition home or self-care (01) | DRG 300 ==
LOC: P.ED 16:36 → P.MEDSURG 19:46 → OBSVTOIN 09-29 07:49
PROVIDERS: ATTEND Internal Medicine
DX: I70.8 Atherosclerosis of other arteries (principal); N17.9 Acute kidney failure, unspecified; E11.65 Type 2 diabetes mellitus with hyperglycemia; R00.1 Bradycardia, unspecified; E87.1 Hypo-osmolality and hyponatremia; D63.8 Anemia in other chronic diseases classified elsewhere; I10 Essential (primary) hypertension; E11.9 Type 2 diabetes mellitus without complications; I25.10 Atherosclerotic heart disease of native coronary artery without angina pectoris; R55 Syncope and collapse; I70.208 Unspecified atherosclerosis of native arteries of extremities, other extremity; I50.9 Heart failure, unspecified; E78.5 Hyperlipidemia, unspecified; K21.9 Gastro-esophageal reflux disease without esophagitis; M79.604 Pain in right leg; Z77.090 Contact with and (suspected) exposure to asbestos; Z85.46 Personal history of malignant neoplasm of prostate; Z95.1 Presence of aortocoronary bypass graft; Z83.3 Family history of diabetes mellitus; Z82.49 Family history of ischemic heart disease and other diseases of the circulatory system; T44.7X5A Adverse effect of beta-adrenoreceptor antagonists, initial encounter
CPT/HCPCS: 71020; 71275; 80053; 80061; 81001; 82550; 82948; 83735; 83880; 84484; 85025; 85027; 85379; 85610; 85730; 93005; 93306; 93970; 94761; 96372; J1650; J1815; J7040; Q9967

== ENCOUNTER 2017-02-14 11:08 | Observation (INO) ==
[2017-02-14] MEDS ORDERED: NS 1,000 ML IV ONE (13:01)
[2017-02-14] MEDS ORDERED: ZOFRAN IV ONE (13:01)
[2017-02-14] MEDS ORDERED: MORPHINE IV ONE (13:01)
[2017-02-14 13:38] LABS: MANUAL DIFF NEEDED? NO
[2017-02-14 13:42] LABS: BASO% 0.3 % (0.0-0.8); EOS# 0.37 X1000 (0.0-0.7); EOS% 5.4 % (0.0-10.0); HEMATOCRIT 37.9 % (42.0-52.0); HEMOGLOBIN 12.5 g/dL (14.0-18.0); IMM GRAN# 0.02 X1000 (0.0-0.04); IMM GRAN% 0.3 % (0.0-0.5); LYMPH# 2.11 X1000 (1.2-3.4); LYMPH% 30.9 % (20.5-51.1); MCH 28.8 PG (27-31); MCV 87.3 FL (81-99); MONO# 0.63 X1000 (0.11-0.59); MONO% 9.2 % (1.7-9.3); MPV 12.1 FL (7.4-10.4); NEUT% 53.9 % (42.2-75.2); PLT 169 X1000 (130-400); RBC 4.34 XMIL (4.7-6.1)
[2017-02-14 14:03] LABS: AGAP 11; ALBUMIN 4.2 g/dL (3.5-5.0); ALKALINE PHOSPHATASE 57 U/L (32-122); AMYLASE 186 U/L (20-200); BUN 15 mg/dL (8-22); CALCIUM 9.3 mg/dL (8.8-10.2); CHLORIDE 100 mmol/L (98-107); COSMO 279; GOT 15 U/L (10-34); GPT 10 U/L (10-44); LIPASE 18 U/L (13-60); SODIUM 137 mmol/L (136-145); TCO2 27 mmol/L (25-35); TOTAL PROTEIN 8.3 g/dL (6.3-8.3)
[2017-02-14 14:08] LABS: URINE CULTURE PL NEEDED? NO
[2017-02-14 14:20] LABS: BILIRUBIN URINE NEGATIVE (NEGATIVE); BLOOD URINE NEGATIVE (NEGATIVE); CLARITY CLEAR (CLEAR); COLOR YELLOW; GLUCOSE URINE NEGATIVE (NEGATIVE); LEUKOCYTES URINE NEGATIVE (NEGATIVE); NITRITE URINE NEGATIVE (NEGATIVE); PROTEIN URINE TRACE mg/dL (NEGATIVE); SP GRAVITY URINE 1.015; UROBILINOGEN URINE NORMAL
[2017-02-14 14:36] LABS: URINE SOURCE CLEAN CATCH
[2017-02-14 14:40] LABS: URINE RBC <10 /HPF (<10); URINE WBC <10 /HPF (<10)
--- NOTE | 2017-02-14 15:59 | Diag Imaging Result Doc PS360 ---
EXAM: ABD/PELVIS/PULM ARTERIES HISTORY: L CP and L abd pain TECHNIQUE: CT chest with coronal MIP images. Abdomen and pelvis with intravenous contrast. COMPARISON: Chest is compared to 09/26/2016. Abdomen and pelvis is compared to 07/28/2015. FINDINGS: Chest: There is normal opacification of the pulmonary arteries and their proximal branches. Sternal wires are present and the heart is mildly enlarged. Tiny bilateral pleural effusions. No thoracic aortic aneurysm or dissection. There are small mediastinal lymph nodes. There is a stent in the left subclavian artery on the current exam which was not previously present. Mild increased interstitial markings with mild pulmonary edema. No consolidation. Abdomen and pelvis: The gallbladder is contracted. No focal hepatic abnormality. Normal spleen, pancreas, and adrenal glands. There are small renal cysts. No stones or hydronephrosis. No aortic aneurysm. Mild to moderate atherosclerosis. No bowel obstruction. There are diverticula scattered throughout the colon. Normal appendix. No abscess. The urinary bladder is moderately distended and appears normal. The prostate is not enlarged. Mild superior endplate compression fracture to the L2 vertebra. This was present on the prior exam and is unchanged. Small fat filled right inguinal hernia. IMPRESSION: Chest: No pulmonary emboli. Mild cardiomegaly with pulmonary edema and tiny effusions may represent congestive failure. Abdomen and pelvis: Stable exam. Electronically signed by Chance Pruitt 02/14/2017 3:57 PM
--- NOTE | 2017-02-14 16:19 | PROVIDER DOCUMENTATION ---
This chart was entered by Ryann Knowles Scribe, acting as scribe for Susana Grace MD. HPI-Abdominal Pain/GI Problem - General Chief Complaint: Abdominal Pain Stated Complaint: HIP/SIDE PAIN Time Seen by Provider: 02/14/17 12:57 Source: patient, family Allergies/Adverse Reactions: Patient Allergies Allergy/AdvReac Type Severity Reaction Status Date / Time Latex, Natural Rubber Allergy Severe RASH Verified 02/14/17 11:23 codeine Allergy Mild ITCHING Verified 02/14/17 11:23 Penicillins Allergy Mild ITCHING Verified 02/14/17 11:23 Home Medications: Home Medication List Medication Instructions Recorded Confirmed Last Taken Type Aspirin [Aspirin EC] 81 mg PO DAILY 03/29/16 12/12/16 1 Day Ago History Linaclotide [Linzess] 145 mcg PO DAILY 03/29/16 12/12/16 09/26/16 History Pregabalin [Lyrica] 50 mg PO DAILY PRN PRN 04/04/16 12/12/16 1 Day Ago History Bupropion HCl [Bupropion Xl] 150 mg PO DAILY 09/27/16 12/12/16 1 Day Ago History Clobetasol Propionate/Emoll 60 gm TP BID 09/27/16 12/12/16 1 Day Ago History [Clobetasol Emollient 0.05% Crm] Divalproex [Depakote] 250 mg PO BID 09/27/16 12/12/16 1 Day Ago History Duloxetine HCl [Cymbalta] 60 mg PO DAILY 09/27/16 12/12/16 1 Day Ago History Furosemide [Lasix] 40 mg PO DAILY 09/27/16 12/12/16 1 Day Ago History Losartan Potassium 50 mg PO DAILY 09/27/16 12/12/16 1 Day Ago History Mirtazapine 30 mg PO QHS 09/27/16 12/12/16 1 Day Ago History Rivastigmine [Exelon] 4.5 mg PO DAILY 09/27/16 12/12/16 1 Day Ago History Tamsulosin HCl 0.4 mg PO QHS 09/27/16 12/12/16 1 Day Ago History ATORVAstatin [Lipitor] 10 mg PO QHS #0 tablet 09/30/16 12/12/16 1 Day Ago Rx Gabapentin [Neurontin] 300 mg PO BID #0 capsule 09/30/16 12/12/16 1 Day Ago Rx Insulin Human NPH [Humulin N] 100 unit SUBQ ACB #1 vial 09/30/16 12/12/16 1 Day Ago Rx Insulin Regular, Human [Novolin R] 100 unit SQ ACB #1 vial 09/30/16 12/12/16 1 Day Ago Rx Isosorbide Mononitrate E.r. [Imdur] 60 mg PO DAILY #0 tablet 09/30/16 12/12/16 1 Day Ago Rx Metoprolol [Lopressor] 25 mg PO DAILY #30 tablet 09/30/16 12/12/16 1 Day Ago Rx Nitroglycerin Sl [Nitroglycerin] 0.4 mg SL PRN PRN #0 tablet 09/30/16 12/12/16 Unknown Rx Ranolazine E.r. [Ranexa] 500 mg PO BID #60 tablet 09/30/16 12/12/16 1 Day Ago Rx Zolpidem [Ambien] 5 mg PO HS PRN PRN #20 tablet 10/26/16 12/12/16 1 Day Ago Rx Lorazepam [Ativan] 0.5 mg PO QHS #20 tablet 11/23/16 12/12/16 1 Day Ago Rx Albuterol Sulfate [Proair Hfa] 2 puff IH Q6HR #1 hfa.aer.ad 12/25/16 1 Day Ago Rx Zolpidem [Ambien] 5 mg PO HS PRN PRN #10 tablet 01/02/17 Unknown Rx - History of Present Illness-ABD Nature of Presenting Problems: 87 year old male presents to ER with complaint of LLQ abdominal pain that he states has been occurring for a year. Pt has a hx of prostate cancer and chronic constipation. Abdominal Pain Onset Location: reports: LLQ Onset/Duration: reports: other (one year) Timing: reports: still present Review of Systems - Adult - REVIEW OF SYSTEMS - ADULT Constitutional: denies: chills, fever Eyes: reports: no symptoms reported Ears, Nose, Mouth & Throat: reports: no symptoms reported Cardiovascular: reports: no symptoms reported Respiratory: reports: no symptoms reported Gastrointestinal: reports: abdominal pain, nausea Genitourinary: reports: no symptoms reported Musculoskeletal: reports: no symptoms reported Integumentary: reports: no symptoms reported Neurological: reports: no symptoms reported Psychiatric: reports: no symptoms reported Endocrine: reports: no symptoms reported Hematologic/Lymphatic: reports: no symptoms reported Allergic/Immunologic: reports: no symptoms reported All Other Systems: Reviewed and Negative Past History - Adult - PAST MEDICAL HISTORY-ADULT Review of Records: reports: Nursing Assessment Review, Medications Reviewed Cardiovascular: reports: CAD, HTN, hyperlipidemia Respiratory: reports: asthma, other (asbestosis) Gastrointestinal: reports: GERD Obstetrical/Gynecological: reports: denies history Genitourinary: reports: prostate cancer Musculoskeletal: reports: chronic pain Neurological: reports: denies history Psychiatric: reports: anxiety Endocrine/Immune: reports: Diabetes Other Conditions: reports: denies history - PRIOR SURGERIES/PROCEDURES Surgical/Procedure History: reports: tonsillectomy, hernia repair - IMMUNIZATION STATUS Childhood Immunizations: See Nurse Assessment Flu Vaccine: See Nurse Assessment - FAMILY HISTORY Family History: reviewed, not pertinent Physical Exam-General - CONSTITUTIONAL General Appearance: appears well, alert - EYES Eyes: PERRL/EOMI, pink conjunctivae - HEAD, EARS, NOSE, MOUTH & THROAT HENMT: normocephalic/atraumatic, moist mucous membranes - NECK Neck: non-tender, full range of motion - RESPIRATORY Respiratory: lungs clear, normal breath sounds - CARDIOVASCULAR Cardiovascular: normal peripheral pulses, regular rate, rhythm - GASTROINTESTINAL (ABDOMEN) Abdominal Exam: guarding, tenderness - MUSCULOSKELETAL Back Exam: no CVA tenderness, no vertebral tenderness Extremity: non-tender, normal inspection - SKIN Integumentary: normal color, warm/dry - NEUROLOGIC Neurologic: grossly normal, no motor/sensory deficits - PSYCHIATRIC Psych/Mental Status: normal mood/affect, normal thought content, normal thought process, oriented x 3 Progress - PLAN OF CARE/RESULTS Progress/Plan/Lab Results: Vital Signs - 8 hr 02/14/17 11:21 Temperature 97.9 F Pulse Rate 79 Respiratory Rate 18 Blood Pressure 149/070 Laboratory Results - last 24 hr 02/14/17 13:30 WBC 6.82 RBC 4.34 L Hgb 12.5 L Hct 37.9 L MCV 87.3 MCH 28.8 MCHC 33.0 RDW Std Deviation 13.2 Plt Count 169 MPV 12.1 H Immature Gran % (Auto) 0.3 Neut % (Auto) 53.9 Lymph % (Auto) 30.9 [place] % (Auto) 9.2 Eos % (Auto) 5.4 Baso % (Auto) 0.3 Immature Gran # (Auto) 0.02 Neut # (Auto) 3.67 Lymph # (Auto) 2.11 [place] # (Auto) 0.63 H Eos # (Auto) 0.37 Baso # (Auto) 0.02 Orders Category Date Time Status Saline Loc DIRECTED Care 02/14/17 13:01 Active NPO Diet 02/14/17 13:01 Active FLAT/UPRIGHT ABD/1 VIEW CHEST [RAD] Stat Exams 02/14/17 13:01 Ordered AMYLASE [CHEM] Stat Lab 02/14/17 13:30 Received CBC WITH ELECTRONIC DIFF [HEME] Stat Lab 02/14/17 13:30 Completed COMPREHENSIVE METABOLIC PANEL [CHEM] Stat Lab 02/14/17 13:30 Received D-DIMER PL [COAG] Stat Lab 02/14/17 13:30 Received LIPASE [CHEM] Stat Lab 02/14/17 13:30 Received PRO B-NATRIURETIC PEPTIDE Stat Lab 02/14/17 13:30 Received TROPONIN T Stat Lab 02/14/17 13:[address] W/POSS RFLX CULT [URINALYSIS] Stat Lab 02/14/17 13:01 Uncollected 0.9% Sodium Chloride Inj [Ns] 1,000 ml Med 02/14/17 13:01 Active IV 250 mls/hr Morphine Med 02/14/17 13:01 Discontinued 4 mg IV NOW ONE Ondansetron [Zofran] Med 02/14/17 13:01 Discontinued 4 mg IV NOW ONE Result Diagrams: 02/14/17 13:30 02/14/17 13:30 - CT/MRI 1 CT Study: Abdomen, Pelvis Impression: Normal CT Results: stable exam per radiologist - CONSULTS/PCP/HOSPITALIST Notification #1 *Consult/PCP/Hospitalist*: Karo Time Discussed: 16:18 Consult Disposition: Will see in ED, Admit Departure - Departure Date of Disposition Decision: 02/14/17 Time of Disposition Decision: 16:19 DIAGNOSIS: Chest pain, CHF (congestive heart failure) Disposition: ADMITTED INPATIENT 09 Certified Medical Emergency: Emergent Condition: Stable Referrals and Follow-Ups: Chinmay Cunha MD [Primary Care Provider] - - Critical Care Note This patient required my direct & personal management of CC.: No This chart was documented by the indicated scribe, (Ryann Knowles, Scribe) and accurately reflects the services I performed and decisions made by me, Susana Grace MD, as attested by the provider's signature.
[2017-02-14] MEDS ORDERED: LASIX IV ONE (16:28)
[2017-02-14] MEDS ORDERED: ZOFRAN IV PRN (17:44)
--- NOTE | 2017-02-14 19:22 | HISTORY AND PHYSICAL ---
PRIMARY CARE PHYSICIAN: Dr. Cunha. CHIEF COMPLAINT: Left flank pain, radiating around to left hip. HISTORY OF PRESENT ILLNESS: This is an 87-year-old gentleman with a history of CAD, status post coronary artery bypass graft in April 2016, congestive heart failure, with an EF of 50% in September 2016, diabetes mellitus, who presented to the emergency room complaining of left flank and left hip pain. He states that he has a chronic achy-type pain that is present to his left flank area, that radiates around the side to his left hip and lower quadrant. This achy- type pain has been present for over a year. He states in the last 2 weeks he has begun to have a sharp, stabbing pain, with certain movements, and it can be reproduced with palpation. Although sometimes it will radiate around to his left lower quadrant, other times it will radiate straight up his left side into his left shoulder blade. It will subside spontaneously. He denied any chest pain with this. He has a history of asbestosis it looks like, with chronic shortness of breath. In fact, he was placed on home O2 within the last 3 weeks. He does state that he had been at his normal shortness of breath until the last 2 weeks. He began to have dyspnea on exertion. Over the last 2-3 days, he has developed shortness of breath at rest and PND, stating that once he wakes up, he has to sit up in a chair for a while to breathe and relax. He denies a cough, fever, chills. PAST MEDICAL HISTORY: 1. Left subclavian stenosis, status post stent. 2. Coronary artery disease, status post coronary artery bypass graft. 3. Congestive heart failure, with EF of 50%, in September 2016. 4. Diabetes mellitus. 5. Chronically elevated D-dimer. 6. Recent history of bradycardia. PAST SURGICAL HISTORY: Coronary artery bypass graft. Left subclavian stent. SOCIAL HISTORY: He denies alcohol, tobacco, or illicit drug use. He does live with family. ALLERGIES: Latex, natural rubber, and penicillins all cause itching. HOME MEDICATIONS: 1. Exelon 4.5 p.o. daily. 2. Losartan 50 p.o. daily. 3. Lisinopril 10 mg daily. 4. Novolin R 100 units subcutaneous before breakfast. 5. NPH 100 units subcutaneous after breakfast. 6. Lipitor 10 mg at bedtime. 7. Plavix 1 daily. REVIEW OF SYSTEMS: A 14-point review of systems is discussed with patient, with pertinent positives stated in the HPI. He denied chest pain, palpitations, syncope, dizziness, cough, fever, chills, nausea, vomiting, diarrhea, black or bloody vomitus, black or bloody stools, hematuria, dysuria, frequency, urgency. PHYSICAL EXAMINATION: GENERAL: This is an 87-year-old gentleman who is sitting up in the chair in no distress. VITAL SIGNS: Blood pressure is 149/70, with a heart rate of 79, respirations are 18, temperature is 97.9 degrees, with room air saturation of 95-96%, and saturations of 99-100% on 2 L nasal cannula. HEENT: Head is normocephalic, atraumatic. Pupils equal, round, react to light. EOMs are intact. Sclerae are anicteric. Mucous membranes are moist. NECK: Supple, with trachea midline. CARDIOVASCULAR: Regular rate and rhythm. S1 and S2 are appreciated. He has no obvious murmurs. He has no S3. He does have some pretibial edema bilateral. GASTROINTESTINAL: Abdomen is soft, nontender, nondistended. Bowel sounds in all 4 quadrants. EXTREMITIES: No clubbing or cyanosis. Pulses are palpable x4. He does have some tenderness to palpation on the left calf. NEUROLOGIC: He is alert and oriented. DIAGNOSTICS: WBC is 6.8, with hemoglobin 12.5, hematocrit 37.9, and platelets of 169,000. D- dimer 0.59. Sodium is 137, potassium 4, BUN 15, creatinine 1.1, with a glucose of 185. Troponin is less than 0.010, with a proBNP of 947. Urinalysis is essentially negative. CT scan of the abdomen and pelvis revealed no pulmonary emboli, mild cardiomegaly, with pulmonary edema and tiny effusions that may represent congestive failure. Abdomen and pelvis are stable exam. ASSESSMENT: 1. Left flank pain, radiates around the left hip. 2. Chronic shortness of breath, pulmonary edema. 3. Elevated D-dimer, persistent. 4. Diabetes mellitus. 5. Known coronary artery disease, status post coronary artery bypass graft. 6. Congestive heart failure, with ejection fraction of 50-55% in September 2016. 7. Left subclavian stenosis, status post stent placement. PLAN: The patient will be admitted to the floor. He will be placed on telemetry. He will receive supplemental oxygen. He was given Lasix in the emergency room. We will attempt to obtain accurate I Os. We will identify and continue his home medications. We will trend labs. Pattern blood glucose with sliding scale insulin. Further treatments pending hospital course. Dictated by ANTIONETTE Rojas for Diony Huddleston MD cc: ANTIONETTE Rojas MD
[2017-02-14] MEDS ORDERED: LIPITOR PO SCH (21:00)
[2017-02-15] MEDS: HUMULIN R (PARKWAY) SUBQ SCH ×3 (00:38→11:20)
[2017-02-15] MEDS ORDERED: MILK OF MAGNESIA PO ONE (02:52)
[2017-02-15 06:03] VITALS: BP 113/60
[2017-02-15 06:08] LABS: HEMOGLOBIN 11.8 g/dL (14.0-18.0); MCH 28.4 PG (27-31); MCHC 32.8 g/dL (33-37); MCV 86.7 FL (81-99); MPV 12.3 FL (7.4-10.4); RBC 4.15 XMIL (4.7-6.1)
[2017-02-15 06:41] LABS: AGAP 11; ALKALINE PHOSPHATASE 54 U/L (32-122); BUN 13 mg/dL (8-22); CALCIUM 9.4 mg/dL (8.8-10.2); CHLORIDE 100 mmol/L (98-107); COSMO 274; GOT 15 U/L (10-34); GPT 10 U/L (10-44); MAGNESIUM 2.3 mg/dL (1.5-2.7); POTASSIUM 4.2 mmol/L (3.5-5.1); SODIUM 136 mmol/L (136-145); TCO2 25 mmol/L (25-35)
[2017-02-15] MEDS ORDERED: EXELON PO SCH (09:00)
[2017-02-15] MEDS ORDERED: PRINIVIL PO SCH (09:00)
[2017-02-15] MEDS ORDERED: COZAAR PO SCH (09:00)
[2017-02-15] MEDS ORDERED: PLAVIX PO SCH (09:00)
--- NOTE | 2017-02-16 07:41 | DISCHARGE SUMMARY ---
ADMISSION DATE: 02/14/2017 DISCHARGE DATE: 02/15/2017 DISCHARGE DIAGNOSES: 1. Left-sided abdominal wall pain. 2. Chronic shortness of breath, stable. 3. Chronic mild pulmonary edema, stable. 4. Chronically elevated D-dimer, unchanged. 5. Diabetes. 6. Known coronary artery disease, status post bypass grafting. 7. Congestive heart failure, systolic, with an ejection fraction of 50-55% in September of 2016. 8. Left subclavian stenosis, status post stent placement. CONSULTATIONS: None. PROCEDURES: None. BRIEF HOSPITAL COURSE: The patient is an 87-year-old male who was admitted as noted on the HPI with left-sided flank and left-sided abdominal wall pain. No true diagnosis was made for the cause of his pain, although it certainly seem more musculoskeletal in nature. It hurt with movement and sometimes was relieved with rest. Thankfully, his pain is resolved at the present time, although this pain has been going on, off and on for the past 3 months ago so I certainly would expect that it will come back. DISPOSITION: The patient will be discharged home. Will continue all his home medications without any changes. He will follow with Dr. Cunha in 1-2 weeks to reevaluate abdominal wall pain. Although CT of the abdomen was negative, it did not demonstrate any new abdominal pathology. He was also negative for a PE. No changes were made on the patient's chronic home medications. He will follow with Dr. Cunha in 1-2 weeks. TIME SPENT: 35 minutes were spent in discharge planning and instructions. cc: Diony Huddleston MD
== END 2017-02-15 11:45 | disposition home or self-care (01) ==
LOC: P.ED 11:08 → INTOOBSV 16:36 → SUATTDRO 16:36 → P.MEDSURG 16:36
PROVIDERS: ATTEND Family Medicine

== ENCOUNTER 2019-02-17 19:16 | Inpatient (IN) ==
--- NOTE | 2019-02-17 21:11 | EKG Report ---
Test Performed on : 02/17/2019 9:04:01 PM Test Reason : confusion Blood Pressure : / mmHG Vent. Rate : 113 BPM Atrial Rate : 113 BPM P-R Int : 154 ms QRS Dur : 106 ms QT Int : 378 ms P-R-T Axes : 056 -57 074 degrees QTc Int : 518 ms Sinus tachycardia. with premature supraventricular complexes. Incomplete right bundle branch block Left anterior fascicular block Abnormal ECG When compared with ECG of 27-NOV-2018 11:17, premature ventricular complexes. are no longer present premature supraventricular complexes. are now present Vent. rate has increased BY 40 BPM Unconfirmed Result
[2019-02-17 21:16] LABS: BASO# 0.02 X1000 (0.0-0.2); BASO% 0.2 % (0.0-0.8); EOS# 0.04 X1000 (0.0-0.7); EOS% 0.3 % (0.0-10.0); HEMATOCRIT 38.6 % (42.0-52.0); HEMOGLOBIN 13.8 g/dL (14.0-18.0); IMM GRAN# 0.03 X1000 (0.0-0.04); IMM GRAN% 0.2 % (0.0-0.5); MCH 30.8 PG (27-31); MCHC 35.8 g/dL (33-37); MCV 86.2 FL (81-99); MONO# 1.18 X1000 (0.11-0.59); MONO% 9.1 % (1.7-9.3); MPV 12.8 FL (7.4-10.4); NEUT# 10.74 X1000 (1.4-6.5); NEUT% 83.2 % (42.2-75.2); PLT 137 X1000 (130-400); RBC 4.48 XMIL (4.7-6.1); RDW 12.7 % (11.5-14.5); WBC 12.91 X1000 (4.8-10.8)
[2019-02-17 21:32] LABS: AGAP 16; BUN 14 mg/dL (8-22); CALCIUM 9.2 mg/dL (8.8-10.2); CHLORIDE 97 mmol/L (98-107); COSMO 281; CREATININE 1.1 mg/dL (0.7-1.2); ESTIMATED GFR > 60; GLUCOSE 284 mg/dL (70-104); POTASSIUM 4.2 mmol/L (3.5-5.1); SODIUM 135 mmol/L (136-145); TCO2 22 mmol/L (25-35)
[2019-02-17 21:34] LABS: BILIRUBIN URINE NEGATIVE (NEGATIVE); BLOOD URINE 3+ (NEGATIVE); CLARITY CLEAR (CLEAR); COLOR YELLOW; KETONE URINE 2+(Moderate) mg/dL (NEGATIVE); LEUKOCYTES URINE TRACE (NEGATIVE); NITRITE URINE NEGATIVE (NEGATIVE); PH URINE 6.5; UROBILINOGEN URINE NORMAL
[2019-02-17 21:39] LABS: URINE SOURCE CATH
[2019-02-17 21:41] LABS: URINE BACTERIA 2+ /HFP; URINE CAST NONE SEEN /LPF; URINE CRYSTAL NONE SEEN /HPF; URINE EPITHELIAL CELLS >10 /HPF (<10); URINE YEAST NONE SEEN /HPF
[2019-02-17] MEDS ORDERED: NS 1,000 ML IV ONE (21:56)
[2019-02-17] MEDS ORDERED: ROCEPHIN 1 GM in NS 50 ML IV ONE (21:56)
--- NOTE | 2019-02-17 22:16 | Diag Imaging Result Doc PS360 ---
EXAM: CT HEAD/C-SPINE W/O CONTRAST - 02/17/2019 HISTORY: fall with pain TECHNIQUE: CT head/cervical spine without contrast COMPARISON: 02/16/2019 FINDINGS: CT head: There are chronic microvascular ischemic changes similar to prior. There is no indication of recent infarct, although acute infarcts may not be immediately visible. There is no evidence of intracranial hemorrhage, mass effect, or midline shift. There is no evidence of skull fracture. CT cervical spine: There is severe multilevel degenerative disease similar to prior, most prominent at C5-6, C6-7, and C7-T1. There are associated posterior disc protrusions and osteophytes which produce mild to moderate spinal stenosis at several levels, and there is multilevel neural foraminal narrowing. There is a ligamentous ossification posterior to the spinous processes at C5-6 which is stable. There is no fracture, subluxation, or precervical soft tissue swelling identified. IMPRESSION: CT head: No visible acute intracranial abnormality. No evidence of intracranial injury. CT cervical spine: Severe multilevel degenerative disease, similar to prior. No evidence of fracture or subluxation. This exam was performed using automated exposure control, adjustment of mA or kV according to patient size, and/or use of iterative reconstruction technique. Electronically signed by Tim Gorman 02/17/2019 10:13 PM
--- NOTE | 2019-02-17 22:49 | PROVIDER DOCUMENTATION ---
This chart was entered by Deirdre Gamez Scribe, acting as scribe for Marquita Molina MD. HPI-Musculoskeletal Pain/Inj - GENERAL Chief Complaint: Fall Stated Complaint: Fall Time Seen by Provider: 02/17/19 20:16 Source: patient, family - HX OF PRESENT ILLNESS-MUSKULOSKELTAL Nature of Presenting Problem: 89 yom c/o arrived via ems for neck pain. pt fell from seated position 3 days ag o, was seen in er by dr. rivera and scans showed a L1 compression fracture. pt was seen earlier today for pain, and is back tonight for pain. pt is poor historian. c collar placed in er. pt is poor historian. arrived in the ED and sts that pt fell trying to get off couch today and c/o neck pain following the fall. pt has dementia and as noted that since his fall and being diagnosed with a uti pt has been more confused than usual, which makes him angry, yells. She feels that he is too much for her to handle. Review of Systems - Adult - REVIEW OF SYSTEMS - ADULT ROS:: limited by pt's dementia and provided primarily bu Constitutional: reports: no symptoms reported Eyes: reports: no symptoms reported Ears, Nose, Mouth & Throat: reports: no symptoms reported Cardiovascular: reports: no symptoms reported Respiratory: reports: no symptoms reported Gastrointestinal: reports: no symptoms reported Genitourinary: reports: no symptoms reported Musculoskeletal: reports: see HPI, neck pain. denies: bone pain, back pain, muscle aches Integumentary: reports: no symptoms reported Neurological: reports: no symptoms reported Psychiatric: reports: no symptoms reported Endocrine: reports: no symptoms reported Hematologic/Lymphatic: reports: no symptoms reported Allergic/Immunologic: reports: no symptoms reported All Other Systems: Reviewed and Negative Past History - Adult - PAST MEDICAL HISTORY-ADULT Review of Records: reports: Old Records Reviewed, Nursing Assessment Review, Medications Reviewed, Social history reviewed & non-contributory. Major Childhood Illnesses: reports: denies history Cardiovascular: reports: CAD, HTN, hyperlipidemia Respiratory: reports: asthma, COPD, other (asbestosis) Gastrointestinal: reports: GERD Obstetrical/Gynecological: reports: denies history Genitourinary: reports: prostate cancer Musculoskeletal: reports: chronic pain Neurological: reports: denies history Psychiatric: reports: anxiety Endocrine/Immune: reports: Diabetes Other Conditions: reports: denies history - PRIOR SURGERIES/PROCEDURES Surgical/Procedure History: reports: CABG, tonsillectomy, hernia repair - IMMUNIZATION STATUS Childhood Immunizations: See Nurse Assessment Flu Vaccine: See Nurse Assessment - FAMILY HISTORY Family History: reviewed, not pertinent - SOCIAL HISTORY Smoking: other (former smoker) Substance Use: none/never Physical Exam-Injury Related - Physical Exam-Injury Related Initial Vital Signs Reviewed: Yes General Appearance: alert, mild distress, slow to respond, obtunded, combative Immobilization?: C-collar, applied in ED Eyes: PERRL/EOMI, pink conjunctivae Head, Ears, Nose, Mouth & Throat: normocephalic/atraumatic, moist mucous membranes, normal ENT inspection Neck: C-spine tenderness, tender midline, other (no stepoffs or deformities). negative: non-tender, full range of motion, normal inspection, ecchymosis Respiratory: chest non-tender, lungs clear, normal breath sounds Cardiovascular: normal peripheral pulses, regular rate, rhythm Chest/Breast: deferred Peripheral Pulses: radial (R): 2+, radial (L): 2+ Abdominal Exam: normal bowel sounds, non tender, soft Male Genitalia: deferred Lymphatic: no adenopathy Back Exam: normal inspection, no CVA tenderness, no vertebral tenderness Extremity: normal range of motion, non-tender, normal inspection Integumentary: normal color, warm/dry Neurologic: grossly normal, no motor/sensory deficits Psych/Mental Status: other (confused, slightly worse than baseline per , moves all extremities equally) - Glascow Coma Score [place] Total: 15 Progress - PLAN OF CARE/RESULTS Progress/Plan/Lab Results: Vital Signs - 8 hr 02/17/19 19:45 Temperature 98.1 F Pulse Rate 88 Respiratory Rate 20 Blood Pressure 177/100 O2 Sat by Pulse Oximetry 97 Laboratory Results - last 24 hr 02/17/19 02/17/19 02/17/19 21:02 21:02 21:02 WBC 12.91 H RBC 4.48 L Hgb 13.8 L Hct 38.6 L MCV 86.2 MCH 30.8 MCHC 35.8 RDW Std Deviation 12.7 Plt Count 137 MPV 12.8 H Immature Gran % (Auto) 0.2 Neut % (Auto) 83.2 H Lymph % (Auto) 7.0 L [place] % (Auto) 9.1 Eos % (Auto) 0.3 Baso % (Auto) 0.2 Immature Gran # (Auto) 0.03 Neut # (Auto) 10.74 H Lymph # (Auto) 0.90 L [place] # (Auto) 1.18 H Eos # (Auto) 0.04 Baso # (Auto) 0.02 Sodium 135 L Potassium 4.2 Chloride 97 L Carbon Dioxide 22 L Anion Gap 16 BUN 14 Creatinine 1.1 Estimated GFR/1.73 m2 > 60 BUN/Creatinine Ratio 13 Glucose 284 H Calculated Osmolality 281 Calcium 9.2 Troponin T < 0.010 Urine Source Urine Color Urine Clarity Urine pH Ur Specific Phyllis Urine Protein Urine Ketones Urine Blood Urine Nitrite Urine Bilirubin Urine Urobilinogen Urine Microscopic RBC Urine WBC Urine Microscopic WBC Ur Epithelial Cells Urine Crystals Urine Bacteria Urine Casts Urine Yeast Urine Glucose 02/17/19 21:21 WBC RBC Hgb Hct MCV MCH MCHC RDW Std Deviation Plt Count MPV Immature Gran % (Auto) Neut % (Auto) Lymph % (Auto) [place] % (Auto) Eos % (Auto) Baso % (Auto) Immature Gran # (Auto) Neut # (Auto) Lymph # (Auto) [place] # (Auto) Eos # (Auto) Baso # (Auto) Sodium Potassium Chloride Carbon Dioxide Anion Gap BUN Creatinine Estimated GFR/1.73 m2 BUN/Creatinine Ratio Glucose Calculated Osmolality Calcium Troponin T Urine Source CATH Urine Color YELLOW Urine Clarity CLEAR Urine pH 6.5 Ur Specific Phyllis 1.020 Urine Protein 3+(500 mg/dL) A Urine Ketones 2+(Moderate) A Urine Blood 3+ A Urine Nitrite NEGATIVE Urine Bilirubin NEGATIVE Urine Urobilinogen NORMAL Urine Microscopic RBC 10-20 A Urine WBC TRACE A Urine Microscopic WBC 10-20 A Ur Epithelial Cells >10 A Urine Crystals NONE SEEN Urine Bacteria 2+ Urine Casts NONE SEEN Urine Yeast NONE SEEN Urine Glucose 3+(500 mg/dL) A Orders Category Date Time Status Admit - [facility] Routine AdmDCTranf 02/17/19 22:40 Active Call Admitting on Arrival AT ADMISSION Care 02/17/19 22:41 Active IV [Saline Loc] NOW Care 02/17/19 20:22 Active Nursing- Obtain EKG ONCE Care 02/17/19 20:22 Active Saline Loc DIRECTED Care 02/17/19 22:40 Active Vital Signs Order ARRIVAL TO ROOM Care 02/17/19 22:40 Active NPO Diet 02/17/19 22:[address] HEAD/C-SPINE W/O CONTRAST [CT] Stat Exams 02/17/19 20:21 Completed BASIC METABOLIC PANEL [CHEM] Stat Lab 02/17/19 21:02 Completed BLOOD CULTURE [BLDCUL] Stat Lab 02/17/19 21:56 Ordered CBC WITH DIFF [HEME] Stat Lab 02/17/19 21:02 Completed TROPONIN T Stat Lab 02/17/19 21:[address] W/POSS RFLX CULT [URINALYSIS] Stat Lab 02/17/19 21:21 Completed URINE CULTURE [RM] Routine Lab 02/17/19 21:41 Ordered 0.9% Sodium Chloride Inj [Ns] 1,000 ml Med 02/17/19 21:56 Active IV 999 mls/hr CefTRIAXONE [Rocephin] 1 gm Med 02/17/19 21:56 Discontinued 0.9% Sodium Chloride Inj [Ns] 50 ml IV NOW EKG [EKG] Stat Ther 02/17/19 20:22 Draft Transfer/Admit Order [TRANSFER] Routine Transfer 02/17/19 22:42 Ordered AMS with recent diagnosis of UTI and L1 compression fracture and repeat fall today. will further evaluate for acute injuries and causes of AMS including but not limited to worsening of uti, acs, electrolyte imbalance, dehydration, other infectious process Result Diagrams: 02/17/19 21:02 02/17/19 21:02 - REASSESSMENT Reassessment #1 Status: improving (continued confusion but improving. CT's negative and c-spine cleared clinically. Continued marked uti and likely cause of pt's confusion. No signs of spesis. Treated with ceftriaxone and will admit for further evaluation and treatment. Discussed case with Dr. Aburto, Hospitalist, who will see and ad magdalene pt.) - EKG 1 Time of EKG reading by physician:: 21:20 EKG Read and Signed by:: Marquita Molina EKG Interpretation (*Must complete 3 of following elements*): Abnormal Rate: 113 Rhythm: Sinus tachycardia w/ premature supraventricular complexes [place]: normal QRS: RBB (incomplete) CO Interval: normal ST Wave: normal Departure - Departure Date of Disposition Decision: 02/17/19 Time of Disposition Decision: 22:48 DIAGNOSIS: Confusion UTI (urinary tract infection) Qualifiers: Urinary tract infection type: site unspecified Hematuria presence: with hematuria Qualified Code(s): N39.0 - Urinary tract infection, site not specified; R31.9 - Hematuria, unspecified Closed L1 vertebral fracture Qualifiers: Encounter type: subsequent encounter Fracture morphology: wedge compression Fracture healing: with routine healing Qualified Code(s): S32.010D - Wedge compression fracture of first lumbar vertebra, subsequent encounter for fracture with routine healing Disposition: ADMITTED INPATIENT 09 Certified Medical Emergency: Emergent Condition: Fair - Critical Care Note This patient required my direct & personal management of CC.: No Attestation - Physician/ LUDY Attestation Patient care was provided by Advanced Practice Provider:: No The physician spent face to face time with patient:: Yes Advanced Practice Provider documentation review:: Supervising physician onsite and consulted in the evaluation and care of this patient. The physician did have a face to face encounter with the patient. This chart was documented by the indicated scribe, (Deirdre Gamez Scribe) and accurately reflects the services I performed and decisions made by me, Marquita Molina MD, as attested by the provider's signature.
[2019-02-18] MEDS ORDERED: ZOFRAN IV PRN (10:39)
[2019-02-18] MEDS ORDERED: TYLENOL PO PRN (10:39)
[2019-02-18] MEDS ORDERED: HUMULIN R (PARKWAY) SUBQ ONE (10:46)
[2019-02-18] MEDS ORDERED: NORCO-5 PO PRN (10:50)
[2019-02-18] MEDS ORDERED: LIORESAL PO PRN (10:50)
[2019-02-18] MEDS ORDERED: TYLENOL PM PO PRN (10:50)
[2019-02-18] MEDS ORDERED: NITROGLYCERIN SL PRN (10:52)
[2019-02-18] MEDS ORDERED: ULTRACET 37.5MG/325MG PO PRN (10:52)
[2019-02-18 11:43] LABS: HEMOGLOBIN A1C 9.9 % (4.8-6.0)
[2019-02-18] MEDS: LOVENOX SUBQ SCH (12:09)
[2019-02-18] MEDS: NORCO-5 PO PRN ×2 (13:56→22:22)
--- NOTE | 2019-02-18 16:06 | HISTORY AND PHYSICAL ---
PRIMARY CARE PROVIDER: Dr. Cunha CHIEF COMPLAINT: Fall. HISTORY OF PRESENT ILLNESS: This is an 89-year-old male that fell from a seated position and arrived via EMS to our ED where he was diagnosed with an L1 compression fracture and a C-collar was also placed at that time. The patient does have dementia. His stated after fall and being diagnosed with the UTI he has been angry and difficult to handle and subsequently decided to call EMS and bring him in. CT of the head and C-spine shows for the head CT, no visible acute intracranial abnormalities and CT of the cervical spine shows multilevel degenerative disease with no fracture or subluxation. EKG sinus tachycardia with a rate of 113 with premature supraventricular complexes and an incomplete right bundle branch block. PAST MEDICAL HISTORY: 1. Dementia. 2. Back pain. 3. Gastroesophageal reflux disease. 4. Muscle aches. 5. Coronary artery disease. 6. Hypertension. 7. Hyperlipidemia. 8. Asthma. 9. Chronic obstructive pulmonary disease, asbestos related. 10. Prostate cancer. 11. Chronic pain. 12. Diabetes. 13. Anxiety. PAST SURGICAL HISTORY: 1. Coronary artery bypass grafting. 2. Tonsillectomy. 3. Hernia. FAMILY HISTORY: Positive mother and father for CAD. SOCIAL HISTORY: Former smoker. Denies any use of alcohol, tobacco, or illicit drug use at this time. Patient lives with his . ALLERGIES: To latex and natural rubber. Codeine, penicillins and morphine. HOME MEDICATIONS: To be updated and reconciled. REVIEW OF SYSTEMS: The patient is demented, so review of systems as per . General: General the patient is does not report any flu-like symptoms. HEENT: No headaches, vision changes, or neck pain. Endocrine: Denies excessive thirst, urination, or intolerance to heat. CV: Denies chest pain. Respiratory: Denies any current shortness of breath. GI: Denies any nausea, vomiting, constipation. : Denies burning, urgency or frequency. Musculoskeletal: The patient complains of all over muscle pains and aches. Hematologic: Patient denies bruising. Psych: Dementia. Skin: No rashes or lesions noted. LABORATORY: Patient's WBCs are 12.9 with a hemoglobin and hematocrit of 13.8 and hematocrit of 38.6, platelets 137,000, neutrophils 10.74. Sodium 135, potassium 4.2, chloride 97, carbon dioxide 22, BUN is 14 with a creatinine of 1.1. The glucose was 284. Urine is positive for 3+ protein , 2+ ketones, blood +3, with trace WBCs and 3+ glucose. EKG did show sinus tachycardia with a rate of 113 with premature supraventricular complexes and incomplete right bundle branch block. Troponin was negative and a head CT showed no visible acute intracranial abnormality. CT of spine showed multilevel degenerative disk disease with no fracture or subluxation noted. PHYSICAL EXAM: VITAL SIGNS: Temperature 98.4 degrees, heart rate is 101, respiratory rate of 18, 145/67 for blood pressure, 98% on room air. GENERAL: This an 89-year-old male. HEENT: Normocephalic. PERRLA. Mucous membranes were moist. NECK: Was no lymphadenopathy was noted. CV: There was no murmur, gallops, rubs. Rate and rhythm was regular. RESPIRATORY: Lung sounds were clear anteriorly with nonlabored respirations noted. ABDOMEN: Soft and nontender to all 4 quadrants. Bowel sounds were audible in all 4 quadrants. NEURO: Unable to assess due to dementia. MUSCULOSKELETAL: Patient was moving all 4 extremities. SKIN: Warm, dry, and intact. ASSESSMENT: 1. r/o TIA 2. Confusion related to dementia. 3.. Urinary tract infection. 4. Closed L1 vertebral fracture. 5. Diabetes. PLAN: 1. We will admit to [place] with activity up with assistance. 2. We will continue fasting blood sugars and Accu-Cheks, I O maintained. 3. Update and reconcile medications. 4. We will maintain saline lock. 5. Vital signs q.[address] hours[address] We will place on telemetry unit and a diabetic diet. 7. We will do physical therapy evaluation. 8. Accounts Manager services will be consulted for discharge. 9. Blood cultures x2, A1c, CBC, CMP and TSH with urine culture pending. 10. We will start low-dose sliding scale insulin, Tylenol 650 as needed for pain. We will resume the baclofen 10 mg p.o. t.i.d., Cymbalta 60 mg p.o. b.i.d., Lovenox 40 mg subcutaneous q 24, hydrocodone 1 tablet p.o. q.4 to 6 hours. We will maintain NPH insulin 20 units subcutaneous q. p.m., nitroglycerin as needed for pain. Zofran 4 mg IV p.r.n. We will resume the Rocephin 1 g Tylenol. Ultram 1 tablets p.r.n. q.6 p.r.n. as needed. 11. MRI w/wo contrast r/o TIA 11. Further recommendations will be pending per patient's clinical course and response to therapy. Dictated by ANTIONETTE Chapa for Anthony Aburto MD cc: Anthony Aburto MD [facility]
--- NOTE | 2019-02-18 16:55 | HISTORY AND PHYSICAL ---
ADDENDUM: The patient came in with confusion, weakness and recurrent falls. He sustained a L1 compression fracture and seemed to be doing okay. The patient will be admitted, observed. He may end up needing further treatment, PT. There is also a question if he has got a UTI; although, right now he does not clearly have urinary tract infection, positive culture in any case. We will continue to follow closely. DISPOSITION: Pending clinical status. May end up needing further intervention. cc: Anthony Aburto MD
[2019-02-18] MEDS: ROCEPHIN 1 GM in NS 50 ML IV SCH (22:21)
[2019-02-18] MEDS: HUMULIN N INSULIN (PARKWAY) SUBQ SCH (22:22)
[2019-02-18] MEDS: CYMBALTA PO SCH (22:23)
[2019-02-19] MEDS: NORCO-5 PO PRN ×2 (04:48→10:55)
[2019-02-19 06:46] LABS: BASO# 0.02 X1000 (0.0-0.2); BASO% 0.2 % (0.0-0.8); EOS# 0.27 X1000 (0.0-0.7); EOS% 3.3 % (0.0-10.0); HEMATOCRIT 35.7 % (42.0-52.0); HEMOGLOBIN 12.4 g/dL (14.0-18.0); LYMPH# 1.23 X1000 (1.2-3.4); MCH 29.7 PG (27-31); MCHC 34.7 g/dL (33-37); MCV 85.4 FL (81-99); MONO# 0.94 X1000 (0.11-0.59); MONO% 11.5 % (1.7-9.3); MPV 13.3 FL (7.4-10.4); NEUT# 5.72 X1000 (1.4-6.5); PLT 137 X1000 (130-400); RBC 4.18 XMIL (4.7-6.1); RDW 12.4 % (11.5-14.5); WBC 8.18 X1000 (4.8-10.8)
[2019-02-19 07:26] LABS: AGAP 12; ALBUMIN 3.4 g/dL (3.5-5.0); BUN 11 mg/dL (8-22); CALCIUM 8.6 mg/dL (8.8-10.2); CHLORIDE 99 mmol/L (98-107); COSMO 272; CREATININE 0.8 mg/dL (0.7-1.2); ESTIMATED GFR > 60; GLUCOSE 141 mg/dL (70-104); POTASSIUM 3.1 mmol/L (3.5-5.1); SODIUM 135 mmol/L (136-145); TCO2 24 mmol/L (25-35)
[2019-02-19 07:27] LABS: ALKALINE PHOSPHATASE 59 U/L (32-122); GOT 17 U/L (10-34); GPT 8 U/L (10-44)
[2019-02-19] MEDS: CYMBALTA PO SCH ×2 (10:33→21:38)
[2019-02-19] MEDS: LOVENOX SUBQ SCH (10:33)
[2019-02-19] MEDS: NORCO-10 PO PRN (17:23)
--- NOTE | 2019-02-19 21:16 | PROGRESS NOTE ---
DATE: 02/19/2019 SUBJECTIVE: Patient has no major complaints, except just pain associated with his compression fracture. He is pretty confused at times. Other than that, he has no major issues. OBJECTIVE: Blood pressure is 162/83, heart rate 99, respiratory 18, temperature 98.4 degrees, 97% on room air.Cardiovascular: Regular rate and rhythm. Pulmonary: Bilateral breath sounds. Clear to auscultation. Gastrointestinal: Soft, nontender, nondistended. Bowel sounds are positive. LABORATORY DATA: White count is down to 8, hemoglobin and hematocrit 12 and 35, platelets 137,000. Sodium 135, potassium 3.1, sugar of 148. The rest of the numbers look okay. PROBLEM LIST: 1. L1 compression fracture. We will continue pain control. PT is evaluating him. Brace is available. 2. Dementia with some behavioral disturbance and continued treatment. 3. Urinary tract infection. Sample was fairly dirty and culture is negative thus far. We will continue empiric antibiotics because he did have a white count. 4. Coronary artery disease, hypertension. We will continue his regular medications. 5. Type 2 diabetes. We will continue to follow, increase his pain medicine, and see how he does. DISPOSITION: He is still really not able to ambulate very much without great difficulty. He has a lot of pain and he is having some left lower extremity weakness, which I do not think is completely new, but we are awaiting workup which includes MRI which has not been completed because the equipment has been down, but anticipate he may end up needing rehab. cc: Anthony Aburto MD
[2019-02-19] MEDS: ARICEPT PO SCH (21:38)
[2019-02-19] MEDS: HUMULIN N INSULIN (PARKWAY) SUBQ SCH (21:38)
[2019-02-19] MEDS: ROCEPHIN 1 GM in NS 50 ML IV SCH (23:45)
[2019-02-20 07:25] LABS: HEMATOCRIT 44.9 % (42.0-52.0); HEMOGLOBIN 16.1 g/dL (14.0-18.0); RBC 5.17 XMIL (4.7-6.1); WBC 4.65 X1000 (4.8-10.8)
[2019-02-20 07:26] LABS: BASO# 0.03 X1000 (0.0-0.2); BASO% 0.6 % (0.0-0.8); EOS# 0.28 X1000 (0.0-0.7); IMM GRAN# 0.02 X1000 (0.0-0.04); IMM GRAN% 0.4 % (0.0-0.5); LYMPH# 0.97 X1000 (1.2-3.4); LYMPH% 20.9 % (20.5-51.1); MCH 31.1 PG (27-31); MCHC 35.9 g/dL (33-37); MCV 86.8 FL (81-99); MONO# 0.57 X1000 (0.11-0.59); MONO% 12.3 % (1.7-9.3); MPV 12.5 FL (7.4-10.4); NEUT# 2.78 X1000 (1.4-6.5); NEUT% 59.8 % (42.2-75.2); PLT 112 X1000 (130-400); RDW 12.7 % (11.5-14.5)
[2019-02-20] MEDS: NORCO-10 PO PRN ×2 (08:03→20:36)
[2019-02-20] MEDS: CYMBALTA PO SCH ×2 (08:03→20:36)
[2019-02-20] MEDS: ASPIRIN EC PO SCH (08:03)
[2019-02-20 08:16] LABS: AGAP 13; BUN 12 mg/dL (8-22); CHLORIDE 96 mmol/L (98-107); COSMO 269; CREATININE 0.7 mg/dL (0.7-1.2); ESTIMATED GFR > 60; GLUCOSE 113 mg/dL (70-104); POTASSIUM 3.4 mmol/L (3.5-5.1); SODIUM 134 mmol/L (136-145); TCO2 25 mmol/L (25-35)
[2019-02-20] MEDS: LOVENOX SUBQ SCH (11:19)
[2019-02-20] MEDS ORDERED: KLOR-CON PO ONE (14:01)
--- NOTE | 2019-02-20 14:54 | PROGRESS NOTE ---
DATE: 02/20/2019 ADDENDUM REPORT ASSESSMENT AND PLAN: 1. Rule out urinary tract infection. Culture is negative. Urine had some white blood cells but had a lot of squamous cells, too. Since urine cultures negative, I am going to stop the Rocephin. 2. He is developing thrombocytopenia so I have stopped his Lovenox and switched him to Arixtra. If he is still low tomorrow, we will need to get a HIT antibody. cc: Anthony Aburto MD
--- NOTE | 2019-02-20 15:10 | PROGRESS NOTE ---
DATE: 02/20/2019 SUBJECTIVE: Patient has no major complaints. OBJECTIVE: Blood pressure is 182/94, heart rate of 91, respiratory rate of 20, temperature 97.9 degrees, 100% on room air.Cardiovascular: Regular rate and rhythm. Pulmonary: Bilateral breath sounds clear to auscultation. Gastrointestinal: Soft, nontender, nondistended. Bowel sounds are positive. LABORATORY DATA: White count 4, hemoglobin 16, hematocrit 44, platelets 112,000. Potassium is down to 3.4. Laboratory data as described. PROBLEM: 1. L1 compression fracture, stable. We will continue pain control, PT. Looking at rehabilitation options. 2. Dementia with behavioral disturbance. I have started Aricept, and we will administer some Risperdal and see how he does. DISPOSITION: We are looking at rehabilitation options when available. I think he should be available to go here soon. cc: Anthony Aburto MD
[2019-02-20] MEDS: ARICEPT PO SCH (20:36)
[2019-02-20] MEDS: RISPERDAL M-TAB PO SCH (20:37)
[2019-02-20] MEDS: HUMULIN N INSULIN (PARKWAY) SUBQ SCH (20:37)
[2019-02-21] MEDS: GEODON IM PRN ×2 (05:25→13:39)
[2019-02-21] MEDS: STERILE WATER INJ. INJ PRN ×2 (05:25→13:39)
[2019-02-21 08:41] LABS: AGAP 14; BUN 15 mg/dL (8-22); CALCIUM 8.9 mg/dL (8.8-10.2); CHLORIDE 100 mmol/L (98-107); COSMO 276; CREATININE 0.7 mg/dL (0.7-1.2); ESTIMATED GFR > 60; GLUCOSE 153 mg/dL (70-104); MAGNESIUM 1.8 mg/dL (1.5-2.7); PHOSPHORUS 3.1 mg/dL (2.7-4.5); POTASSIUM 3.3 mmol/L (3.5-5.1); SODIUM 136 mmol/L (136-145); TCO2 23 mmol/L (25-35)
[2019-02-21] MEDS: ASPIRIN EC PO SCH (09:44)
[2019-02-21] MEDS: RISPERDAL M-TAB PO SCH (09:44)
[2019-02-21] MEDS: CYMBALTA PO SCH ×2 (09:44→20:31)
[2019-02-21] MEDS: ARIXTRA SUBQ SCH (09:45)
[2019-02-21] MEDS ORDERED: KLOR-CON PO ONE (11:07)
--- NOTE | 2019-02-21 17:00 | PROGRESS NOTE ---
DATE: 02/21/2019 SUBJECTIVE: Patient has no major complaints. OBJECTIVE: Vital signs: Blood pressure is 193/84, heart rate 92, respiratory rate 16, temperature 97.3 degrees, 98% on room air. Cardiovascular: Regular rate and rhythm. Pulmonary: Bilateral breath sounds. Clear to auscultation. GI: Soft, nontender, nondistended. Bowel sounds are positive. LABORATORY DATA: Potassium is 3.3. ASSESSMENT AND PLAN: 1. L1 compression fracture. Continue PT, pain control. He has a brace. We will continue to monitor. 2. Dementia with behavioral change. He seems to be doing okay from that standpoint, a little bit sedated but I did start some Risperdal on him. I may back off a little bit because he seems a little bit more sedated. 3. Thrombocytopenia. I do not have platelets today. We will order a CBC tomorrow. 4. Hypokalemia. This is persistent but he got some potassium today and we will continue potassium. 5. Diabetes. Appears to be stable. We will continue to monitor closely. cc: Anthony Aburto MD
[2019-02-21] MEDS ORDERED: RISPERDAL M-TAB PO ONE (19:49)
[2019-02-21] MEDS ORDERED: ATIVAN IV PRN (19:50)
[2019-02-21] MEDS: ATIVAN IM PRN (20:30)
[2019-02-21] MEDS: ARICEPT PO SCH (20:31)
[2019-02-21] MEDS ORDERED: RISPERDAL M-TAB PO SCH (21:00)
[2019-02-21] MEDS: HUMULIN N INSULIN (PARKWAY) SUBQ SCH (22:00)
[2019-02-22] MEDS: ATIVAN IM PRN (04:00)
[2019-02-22 07:36] LABS: AGAP 16; BUN 11 mg/dL (8-22); CALCIUM 9.2 mg/dL (8.8-10.2); CHLORIDE 100 mmol/L (98-107); COSMO 277; CREATININE 0.7 mg/dL (0.7-1.2); ESTIMATED GFR > 60; GLUCOSE 158 mg/dL (70-104); SODIUM 137 mmol/L (136-145); TCO2 20 mmol/L (25-35)
[2019-02-22 07:44] LABS: BASO# 0.04 X1000 (0.0-0.2); BASO% 0.6 % (0.0-0.8); EOS# 0.46 X1000 (0.0-0.7); HEMOGLOBIN 13.7 g/dL (14.0-18.0); IMM GRAN# 0.03 X1000 (0.0-0.04); IMM GRAN% 0.5 % (0.0-0.5); LYMPH# 1.55 X1000 (1.2-3.4); LYMPH% 23.5 % (20.5-51.1); MCH 30.8 PG (27-31); MCHC 36.1 g/dL (33-37); MCV 85.4 FL (81-99); MONO# 0.76 X1000 (0.11-0.59); MONO% 11.5 % (1.7-9.3); MPV 12.3 FL (7.4-10.4); NEUT# 3.76 X1000 (1.4-6.5); NEUT% 56.9 % (42.2-75.2); PLT 185 X1000 (130-400); RBC 4.45 XMIL (4.7-6.1); RDW 12.6 % (11.5-14.5)
[2019-02-22 11:58] VITALS: BP 84/67
[2019-02-22] MEDS: RISPERDAL M-TAB PO SCH ×2 (12:51→15:06)
[2019-02-22] MEDS: ASPIRIN EC PO SCH ×2 (12:51→15:00)
[2019-02-22] MEDS: KLOR-CON PO SCH ×2 (12:51→15:06)
[2019-02-22] MEDS: CYMBALTA PO SCH ×2 (12:52→15:00)
[2019-02-22] MEDS: ARIXTRA SUBQ SCH (12:52)
--- NOTE | 2019-02-22 14:01 | Diag Imaging Result Doc PS360 ---
EXAM: CHEST-1 VIEW INDICATION: SNF requirement TECHNIQUE: One view COMPARISON: 02/16/2019 FINDINGS: There are stable old healed rib fractures on the left. The lungs are grossly clear. There is no discrete pleural fluid collection or pneumothorax. Median sternotomy wires are stable. The cardiomediastinal silhouette and central vasculature are unremarkable, otherwise. IMPRESSION: No evidence of acute pathology by plain radiograph. Electronically signed by Solomon Gamez 02/22/2019 1:59 PM
--- NOTE | 2019-02-22 14:11 | DISCHARGE SUMMARY ---
ADMISSION DATE: 02/17/2019 DISCHARGE DATE: 02/22/2019 DISCHARGE DIAGNOSES: 1. L1 compression fracture. 2. Dementia with behavioral change. 3. Thrombocytopenia. 4. Hypokalemia. 5. Diabetes. CONSULTATIONS: None. PROCEDURES: None. BRIEF HOSPITAL COURSE: The patient was admitted to the hospital, diagnosed with an L1 compression fracture. He currently has good pain control. He has a brace. He is lying in bed with no changes. He is calm. Unfortunately, he is unable to physically care for himself at home. Therefore, he will be discharged to rehab. DISPOSITION: Patient will be discharged to rehab. He will continue medications as noted on his discharge medication list. He will continue physical therapy. He will have a regular diet. TIME SPENT: Thirty-five minutes were spent in discharge planning. cc: Diony Huddleston MD
== END 2019-02-22 15:22 | DRG 552 ==
LOC: P.ED 19:16 → P.MEDSURG 23:08 → SUATTDRO 23:08
PROVIDERS: ATTEND Family Medicine
CPT/HCPCS: 70450; 71010; 71045; 71111; 72125; 72128; 72131; 80048; 80053; 81001; 82948; 83036; 83735; 84100; 84443; 84484; 85025; 87040; 87088; 93005; 96365; 97161; 97530; 99284; 99285; A9270; J0696; J1170; J1650; J1652; J1815; J2060; J2405; J3486; J7030; XXXXX